=== PATIENT | male | born 1975 | race Caucasian/White ===

== ENCOUNTER 2020-09-11 10:36 | Emergency (ER) | payer MEDICAID, SELFPAY ==
--- NOTE | ~2020-09-11 | CT_ITS ---
EXAMINATION: CT ABDOMEN AND PELVIS WITHOUT CONTRAST CLINICAL INFORMATION: Left flank pain. COMPARISON: None TECHNIQUE: Multidetector volumetric imaging was performed from the superior aspect of the liver through the pubic symphysis. Sagittal and coronal reformatted images were obtained on the technologist's workstation. This CT examination was performed using dose optimization techniques as appropriate, variously including the following: *Automated exposure control *Adjustment of mA and/or kV according to patient size (this includes techniques or standardized protocols for targeted exams where dose is matched to indication/reason for exam; i.e. extremities or head) *Use of iterative reconstruction technique DLP: 649 mGy-cm FINDINGS: LUNG BASES: The lung bases are clear. The heart size is normal. LIVER, GALLBLADDER, AND BILIARY TREE: The liver is normal in size, shape, and attenuation. No focal hepatic lesion or biliary ductal dilatation is present. There are multiple dependent radiopaque gallstones. PANCREAS: Unremarkable. SPLEEN: Unremarkable. ADRENAL GLANDS: Unremarkable. KIDNEYS AND URETERS: The kidneys are normal in size, shape, and attenuation. No hydronephrosis, hydroureter, or calculi seen. No perinephric stranding. BLADDER: Unremarkable. GASTROINTESTINAL TRACT: There is scattered stool and gas seen throughout the colon without significant distention. The small bowel loops are normal caliber. The appendix is not seen well. ABDOMINAL WALL: No significant hernia is appreciated. LYMPH NODES: Normal. VASCULAR: Unremarkable. PELVIC VISCERA: There are scattered phleboliths in the left pelvis. No free fluid or free air. No abnormal pelvic lymph nodes seen. OSSEOUS STRUCTURES: There are superior endplate compression deformities T10 and T11 vertebra of indeterminate age. CT/CT abdomen pelvis wo con IMPRESSION: Moderate constipation without obstruction. No radiopaque urolith or hydroureteronephrosis. Cholelithiasis without wall thickening.
[2020-09-11 11:19] VITALS: BP 121/81; PULSE 90; RESP 18; TEMP 36.8; O2SAT 96; BMI 27.3
--- NOTE | 2020-09-11 12:11 | ED.ABDPAIN ---
HPI - Abdominal Pain General Chief Complaint: Abdominal Pain Stated Complaint: flank pain Time Seen by Provider: 09/11/20 12:09 Source: patient Mode of arrival: ambulatory Limitations: no limitations History of Present Illness HPI narrative: 45 yo male undergoing ETOH recovery sober 30 days last night developed L flank pain and dysuria no prior episodes of stones in the past MD elicited complaint: flank pain Pertinent past history: none Onset (ago): day(s) (1) Pain Consistency: constant Location: LLQ and L flank Severity: moderate Quality: stabbing Radiation: none Migration to: LLQ Exacerbating factors: nothing Relieving factors: nothing Associated symptoms: nausea and dysuria Related Data Previous Rx's Medication Instructions Recorded gabapentin 600 mg PO TID 30 Days #90 tab 09/11/20 hydroxyzine HCl 50 mg PO TID PRN 30 Days #90 tab 09/11/20 lactulose 20 g PO DAILY PRN #1200 ml 09/11/20 quetiapine [Seroquel] 50 mg PO DAILY PRN #30 tab 09/11/20 quetiapine [Seroquel] 100 mg PO BEDTIME #30 tab 09/11/20 Allergies Allergy/AdvReac Type Severity Reaction Status Date / Time No Known Allergies Allergy Verified 09/11/20 11:19 Review of Systems Review of Systems Constitutional : No Weight loss, No Fever, No Chills ENT/Mouth : No sore throat, No Rhinorrhea Eyes: No Swelling, No Redness Cardiovascular : No Chest Pain, No SOB, NoEdema Respiratory : No Cough, No Sputum, No Wheezing Gastrointestinal : Positive Nausea, no Vomiting, no Diarrhea, positive abdominal Pain, No Hematochezia, No Melena Genitourinary : pos Dysuria, No Urinary Frequency, No Hematuria, No Urgency Musculoskeletal : No joint pain, No Myalgias, No Joint Swelling Skin : No Skin Lesions, No rash Neuro : No Weakness, No Numbness, No Dizziness, No Headache Psych : No Anxiety/Panic, No Depression Heme/Lymph: No Bruising, No Lymphadenopathy Endocrine : No Polyuria, No Polydipsia All other systems reviewed and are negative. Physical Exam Vital Signs: Vital Signs: Last Vital Signs Temp 98.2 F 09/11/20 11:19 Pulse 90 09/11/20 11:19 Resp 18 09/11/20 11:19 BP 121/81 09/11/20 11:19 Pulse Ox 96 09/11/20 11:19 Body Mass Index 27.3 Appearance: Alert. Oriented X3. No acute distress. Anxious Eyes: Pupils equal, round and reactive to light. ENT: Pharynx normal. Neck: Normal inspection. Neck supple. CVS: Normal heart rate and rhythm. Pulses normal. Respiratory: No respiratory distress. Breath sounds normal. Abdomen: Soft and nontender. Skin: Skin warm and dry. Normal skin color. Normal skin turgor. Extremities: No lower extremity edema. No calf ttp Neuro: Oriented X 3. No motor deficit. No sensory deficit. Course Course Course Narrative: stable for DC at this time, other than constipation no acute events MDM - Abdominal Pain MDM Narrative Medical decision making narrative: 45 yo male 30 days sober from ETOH comes in with L flank pain as well as dysuria possible renal colic, at this time will start labs, UA, CT scan for renal colic, IVF, IV Toradol for pain, also requesting refills of seroquel, gabapentin, atarax due to no PCP and is about to run out of medications. Lab Data Result diagrams: 09/11/20 13:11 09/11/20 13:11 Labs: Lab Results 09/11/20 09/11/20 09/11/20 Range/Units 11:43 13:11 13:11 WBC 8.8 (4.8-10.8) X10*3/uL RBC 5.15 (4.60-5.80) X10*6/uL Hgb 14.0 (14.0-18.0) g/dl Hct 44.6 (42-52) % MCV 86.6 (80-98) fL MCH 27.2 (27.0-33.0) pg MCHC 31.4 (31.0-36.0) g/dl RDW 13.2 (11.0-16.0) % Plt Count 195 (160-400) X10*3/uL MPV 9.6 (9.4-12.4) fL Immature Gran % (Auto) 0.8 H (0.0-0.4) % Neut % (Auto) 69.3 (45-73) % Lymph % (Auto) 22.7 (20-40) % [place] % (Auto) 6.0 (2-11) % Eos % (Auto) 0.9 (0-4) % Baso % (Auto) 0.3 (0-2) % Lymph # (Auto) 2.0 (1.2-4.9) X10*3/uL [place] # (Auto) 0.5 (0.1-1.2) X10*3/uL Eos # (Auto) 0.1 (0.0-0.4) X10*3/uL Baso # (Auto) 0.0 (0.0-0.2) X10*3/uL Abs Immat Gran (auto) 0.07 H (0.00-0.03) X10*3/uL Absolute Neuts (auto) 6.1 (2.0-8.3) X10*3/uL Absolute Nucleated RBC 0.000 (0.0-0.012) X10*3/uL Nucleated RBC % (auto) 0.0 (0.0-0.2) /100WBC Hold Blue Top SEE NOTE Sodium (135-145) mmol/L Potassium (3.3-5.1) mmol/L Chloride (96-108) mmol/L Carbon Dioxide (22-29) mmol/L Anion Gap (12-20) BUN (9-16) mg/dL Creatinine (0.5-1.4) mg/dL Estim Creat Clear Calc Estimated GFR Random Glucose (60-115) mg/dL Calcium (8.4-10.2) mg/dL Magnesium (1.6-2.6) mg/dL Total Bilirubin (0.0-1.0) mg/dL Direct Bilirubin (0.0-0.5) mg/dL AST (5-37) U/L ALT (0-40) U/L Alkaline Phosphatase (39-117) U/L Total Protein (6.5-8.0) g/dL Albumin (3.5-5.0) g/dL Lipase (8-78) U/L Urine Color YELLOW Urine Appearance CLEAR Urine pH 7.0 (5.0-8.0) Ur Specific [place] 1.015 (1.005-1.025) Urine Protein NEG (NEG-TRACE) MG/DL Urine Glucose (UA) NEG (NEG) MG/DL Urine Ketones NEG (NEG) MG/DL Urine Blood NEG (NEG) Urine Nitrite NEG (NEG) Ur Leukocyte Esterase NEG (NEG) 09/11/20 Range/Units 13:11 WBC (4.8-10.8) X10*3/uL RBC (4.60-5.80) X10*6/uL Hgb (14.0-18.0) g/dl Hct (42-52) % MCV (80-98) fL MCH (27.0-33.0) pg MCHC (31.0-36.0) g/dl RDW (11.0-16.0) % Plt Count (160-400) X10*3/uL MPV (9.4-12.4) fL Immature Gran % (Auto) (0.0-0.4) % Neut % (Auto) (45-73) % Lymph % (Auto) (20-40) % [place] % (Auto) (2-11) % Eos % (Auto) (0-4) % Baso % (Auto) (0-2) % Lymph # (Auto) (1.2-4.9) X10*3/uL [place] # (Auto) (0.1-1.2) X10*3/uL Eos # (Auto) (0.0-0.4) X10*3/uL Baso # (Auto) (0.0-0.2) X10*3/uL Abs Immat Gran (auto) (0.00-0.03) X10*3/uL Absolute Neuts (auto) (2.0-8.3) X10*3/uL Absolute Nucleated RBC (0.0-0.012) X10*3/uL Nucleated RBC % (auto) (0.0-0.2) /100WBC Hold Blue Top Sodium 138 (135-145) mmol/L Potassium 3.9 (3.3-5.1) mmol/L Chloride 99 (96-108) mmol/L Carbon Dioxide 30 H (22-29) mmol/L Anion Gap 13 (12-20) BUN 15 (9-16) mg/dL Creatinine 0.78 (0.5-1.4) mg/dL Estim Creat Clear Calc 126.0 Estimated GFR > 60 Random Glucose 87 (60-115) mg/dL Calcium 9.7 (8.4-10.2) mg/dL Magnesium 2.0 (1.6-2.6) mg/dL Total Bilirubin 0.6 (0.0-1.0) mg/dL Direct Bilirubin < 0.2 (0.0-0.5) mg/dL AST 65 H (5-37) U/L ALT 149 H (0-40) U/L Alkaline Phosphatase 139 H (39-117) U/L Total Protein 7.3 (6.5-8.0) g/dL Albumin 4.5 (3.5-5.0) g/dL Lipase 57 (8-78) U/L Urine Color Urine Appearance Urine pH (5.0-8.0) Ur Specific [place] (1.005-1.025) Urine Protein (NEG-TRACE) MG/DL Urine Glucose (UA) (NEG) MG/DL Urine Ketones (NEG) MG/DL Urine Blood (NEG) Urine Nitrite (NEG) Ur Leukocyte Esterase (NEG) Discharge Plan Discharge Clinical Impression: Elevated liver function tests Constipation Qualifiers: Constipation type: other constipation type Qualified Code(s): K59.09 - Other constipation Patient Disposition: Home, Self-Care Instructions: Constipation (ED) Additional Instructions: return to ED for any worsening symptoms or concerns you will need to find a primary care doctor and repeat liver function tests in the next 2 to 4 weeks Prescriptions: New gabapentin 600 mg tablet 600 mg PO TID 30 Days Qty: 90 RF: 1 quetiapine [Seroquel] 100 mg tablet 100 mg PO BEDTIME Qty: 30 RF: 1 quetiapine [Seroquel] 50 mg tablet 50 mg PO DAILY PRN (Reason: anxiety) Qty: 30 RF: 1 hydroxyzine HCl 50 mg tablet 50 mg PO TID PRN (Reason: anxiety) 30 Days Qty: 90 RF: 1 lactulose 20 gram/30 mL solution 20 g PO DAILY PRN (Reason: constipation) Qty: 1200 RF: 0 PMFSH Past Medical History Attestation statement: The following information was validated with the patient. Medical History Anxiety Depression EtOH dependence Neuropathy Social History Social History (Updated 09/11/20 @ 12:31 by Regi Perez DO) Smoking Status: Never smoker Use of substances other than those prescribed or required for medical reasons: No Advance Directives: No Advance Directives Information Provided: No
[2020-09-11 12:39] LABS: Appearance Urine CLEAR; Color Urine YELLOW; Glucose Urine UA NEG (NEG); Leukocyte Esterase Urine NEG (NEG); Nitrite Urine NEG (NEG); Specific Gravity - Urine 1.015 (1.005-1.025); Urine Blood NEG (NEG); Urine Ketones NEG (NEG); Urine Protein NEG (NEG-TRACE)
[2020-09-11 13:15] LABS: MANUAL DIFF FLAG NO
[2020-09-11] MEDS: 0.9 % Sodium Chloride 1,000 ML 999 ML IVCONT (13:15)
[2020-09-11] MEDS: Ketorolac Tromethamine 30 MG/ML VIAL IVPUSH (13:15)
[2020-09-11 13:16] LABS: Basophils Percent Auto 0.3 % (0-2); Eosinophils Absolute Auto 0.1 X10*3/uL (0.0-0.4); Eosinophils Percent Auto 0.9 % (0-4); Hematocrit 44.6 % (42-52); Imm Gran Abs Auto 0.07 X10*3/uL (0.00-0.03); Imm Gran Pct Auto 0.8 % (0.0-0.4); Lymphocytes Percent Auto 22.7 % (20-40); Mean Corpuscular HGB Conc 31.4 g/dl (31.0-36.0); Mean Corpuscular Hemoglobin 27.2 pg (27.0-33.0); Mean Corpuscular Volume 86.6 fL (80-98); Mean Platelet Volume 9.6 fL (9.4-12.4); Monocytes Absolute Auto 0.5 X10*3/uL (0.1-1.2); Neutrophils Absolute Auto 6.1 X10*3/uL (2.0-8.3); Neutrophils Percent Auto 69.3 % (45-73); Platelet Count 195 X10*3/uL (160-400); Red Blood Count 5.15 X10*6/uL (4.60-5.80); Red Cell Distribution Width 13.2 % (11.0-16.0); White Blood Count 8.8 X10*3/uL (4.8-10.8)
[2020-09-11] MEDS: ondansetron HCL 4 MG/2 ML VIAL IVPUSH (13:28)
[2020-09-11 13:53] LABS: Alanine Aminotransferase 149 U/L (0-40); Albumin Level 4.5 g/dL (3.5-5.0); Alkaline Phosphatase 139 U/L (39-117); Anion Gap 13 (12-20); Aspartate Amino Transferase 65 U/L (5-37); Bilirubin Direct < 0.2 mg/dL (0.0-0.5); Bilirubin Total 0.6 mg/dL (0.0-1.0); Blood Urea Nitrogen 15 mg/dL (9-16); Calcium 9.7 mg/dL (8.4-10.2); Carbon Dioxide 30 mmol/L (22-29); Chloride 99 mmol/L (96-108); Estimated Glomerular Filt Rate > 60; Glucose Random 87 mg/dL (60-115); Lipase 57 U/L (8-78); Potassium 3.9 mmol/L (3.3-5.1); Sodium 138 mmol/L (135-145); Total Protein 7.3 g/dL (6.5-8.0)
[2020-09-11 14:00] VITALS: BP 124/78; PULSE 88; RESP 16; TEMP 36.8; O2SAT 99
== END 2020-09-11 14:33 | disposition home or self-care (01) ==
PROVIDERS: Emergency Provider Emergency Medicine
DX: K59.00 Constipation, unspecified (principal); R10.9 Unspecified abdominal pain; R79.89 Other specified abnormal findings of blood chemistry; F10.20 Alcohol dependence, uncomplicated
CPT/HCPCS: 36415; 74176; 80048; 80076; 81003; 83690; 83735; 85025; 96361; 96374; 96375; 99284; J1885; J2405

== ENCOUNTER 2020-10-05 08:33 | Emergency (ER) | payer MEDICAID, SELFPAY ==
[2020-10-05 08:42] VITALS: BP 132/88; RESP 18; TEMP 36.6; O2SAT 98; BMI 27.8
[2020-10-05] MEDS: oxyCODONE HCl Immed Release 5 MG TABLET PO (09:15)
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
[2020-10-05 09:44] VITALS: BP 134/86; PULSE 76; RESP 20; O2SAT 97
== END 2020-10-05 09:45 | disposition home or self-care (01) ==
PROVIDERS: Emergency Provider Emergency Medicine; PCP Internal Medicine
DX: S46.002A Unspecified injury of muscle(s) and tendon(s) of the rotator cuff of left shoulder, initial encounter (principal); Y04.2XXA Assault by strike against or bumped into by another person, initial encounter; F10.20 Alcohol dependence, uncomplicated; Y93.9 Activity, unspecified; Y92.9 Unspecified place or not applicable; Y99.9 Unspecified external cause status
CPT/HCPCS: 99283; 99284

== ENCOUNTER 2021-06-13 13:57 | Emergency (ER) | payer MEDICAID, SELFPAY ==
[2021-06-13 14:18] VITALS: BP 147/93; PULSE 110; RESP 18; TEMP 36.8; O2SAT 94; BMI 30.5
--- NOTE | 2021-06-13 14:40 | ECG_ITS ---
Test Reason : TACHYCARDIA Blood Pressure : / mmHG Vent. Rate : 131 BPM Atrial Rate : 131 BPM P-R Int : 146 ms QRS Dur : 086 ms QT Int : 296 ms P-R-T Axes : 057 038 054 degrees QTc Int : 437 ms Sinus tachycardia Otherwise normal ECG No previous ECGs available Referred By: Generic ED Physician Electronically Signed By:KEE AGGARWAL
[2021-06-13 15:05] LABS: Hematocrit 44.6 % (42.0-52.0); Hemoglobin 14.7 g/dl (14.0-18.0); Mean Corpuscular Hemoglobin 28.8 pg (27.0-33.0); Mean Corpuscular Volume 87.3 fL (80.0-98.0); Mean Platelet Volume 9.6 fL (9.4-12.4); Platelet Count 232 X10*3/uL (160-400); Red Blood Count 5.11 X10*6/uL (4.60-5.80); Red Cell Distribution Width 13.9 % (11.0-16.0); White Blood Count 7.8 X10*3/uL (4.8-10.8)
[2021-06-13 15:19] LABS: Anion Gap 15 (12-20); Blood Urea Nitrogen 10 mg/dL (9-16); Calcium 9.3 mg/dL (8.4-10.2); Carbon Dioxide 25 mmol/L (22-29); Chloride 109 mmol/L (96-108); Creatinine Clr Calc Pharmacy 134.2; Estimated Glomerular Filt Rate > 60; Glucose Random 106 mg/dL (60-115); Potassium 3.5 mmol/L (3.3-5.1); Sodium 145 mmol/L (135-145)
[2021-06-13 15:35] LABS: Ethanol 176 mg/dL
[2021-06-13 15:53] LABS: Amphetamine Screen Urine Not Detected (Not Detect); Barbiturates, Urine POSITIVE (Not Detect); Benzodiazepines Screen Urine POSITIVE (Not Detect); Cannabinoid Screen Urine POSITIVE (Not Detect); Cocaine Screen Urine Not Detected (Not Detect); Fentanyl, urine Not Detected (Not Detect); Opiate Screen Urine Not Detected (Not Detect); Phencyclidine Screen Urine Not Detected (Not Detect)
[2021-06-13] MEDS: LORazepam 1 MG TABLET 2 MG PO (16:15)
[2021-06-13 16:23] VITALS: BP 145/80; PULSE 100; RESP 16; TEMP 36.8; O2SAT 99
--- NOTE | 2021-06-13 17:01 | ED_ITS ---
HPI - General Adult General Chief complaint: General Medical Stated complaint: DETOX Time Seen by Provider: 06/13/21 15:33 Source: patient Mode of arrival: ambulatory History of Present Illness HPI narrative: 45-year-old male with past medical history of anxiety, depression, ETOH dependence, neuropathy presenting to the ED requesting EtOH detox. Admits to drinking 1-2 pt of hard liquor daily last drink around 10:00 a.m. this morning. Denies illicit drugs, SI, HI. Admits to nausea, vomiting and feeling tremulous. Denies fever, chills, cough, CP/SOB Onset (ago): hour(s) Radiation: non-radiation Severity: mild and moderate Relieving factors: none Exacerbating factors: none Related Data Previous Rx's Medication Instructions Recorded gabapentin 600 mg tablet 600 mg PO TID 30 Days #90 tab 09/11/20 hydroxyzine HCl 50 mg tablet 50 mg PO TID PRN 30 Days #90 tab 09/11/20 lactulose 20 gram/30 mL oral 20 g (30 mL) PO DAILY PRN #1200 ml 09/11/20 solution quetiapine 100 mg tablet (Seroquel) 100 mg PO BEDTIME #30 tab 09/11/20 quetiapine 50 mg tablet (Seroquel) 50 mg PO DAILY PRN #30 tab 09/11/20 oxycodone 5 mg tablet 5 mg PO Q8H PRN #10 tab 10/05/20 Allergies Allergy/AdvReac Type Severity Reaction Status Date / Time No Known Allergies Allergy Verified 10/05/20 08:57 Review of Systems Review of Systems: Constitutional: No Fever, No Chills, No Fatigue, No Malaise ENT/Mouth: No Ear Pain, No Nasal Congestion, No sore throat, No Rhinorrhea, No Swallowing Difficulty Eyes: No Eye Pain, No Swelling, No Redness Cardiovascular: No Chest Pain, No SOB Respiratory: No Cough, No Dyspnea Gastrointestinal: + Nausea, + Vomiting, No Diarrhea, No Constipation, No Abdominal pain Genitourinary: No Dysuria, No Urinary Frequency, No Hematuria, No Flank Pain, No Urinary Flow Changes, No Hesitancy Musculoskeletal: No joint pain, No Myalgias, No Joint Swelling Skin: No Skin Lesions, No rash Neuro: No Weakness, No Numbness, No Dizziness, No Headache Yes all other systems are reviewed and are negative PMFSH Past Medical History Attestation statement: The following information was validated with the patient. Medical History Anxiety Depression EtOH dependence Neuropathy Social History Social History Alcohol intake: current Advance Directives: No Advance Directives Information Provided: No Physical Exam Vital Signs: Vital Signs: Last Vital Signs Temp 98.2 F 06/13/21 16:23 Pulse 100 06/13/21 16:23 Resp 16 06/13/21 16:23 BP 145/80 H 06/13/21 16:23 Pulse Ox 99 06/13/21 16:23 BMI result Body Mass Index 30.5 Const: Other: ETOH odor on breath General: cooperative, healthy appearing and no acute distress Orientation/consciousness: patient oriented x3 Limitations: no limitations HENMT: Head: Yes normal to inspection Ears: hearing grossly normal bilaterally and TM's normal bilaterally General nose exam: Normal external nose present Face and sinus: Yes normal facial exam Eyes: General: appearance normal, both eyes and all related structures Pupils: Equal, round and reactive pupils present EOM: EOMs intact bilaterally Neck: Neck: Yes normal visual inspection Resp: Effort & Inspection: normal respiratory effort Auscultation: clear to auscultation bilaterally, no rales, no rhonchi and no wheezes Cardio: Rate: regular rate Heart sounds: S1 normal heart sound present and S2 normal heart sound present GI: Inspection: Yes normal to inspection Palpation (GI): Soft to palpation, nontender, no guarding and not rigid Skin: Rashes: no rashes Wounds: no wounds Neuro: Other: Slightly tremulous. No tongue fasciculations General: patient oriented x3, tone normal and moves all extremities Cranial nerves: Yes Equal, round and reactive pupils present Gait exam (Neuro): Normal gait present Extrem: General: Yes normal to inspection Psych: Thought content: suicidality and no homicidality Course Course Course Narrative: -labs unremarkable. Tox screen positive for barbiturates, benzos, marijuana, and ethanol 176. instructional coach spoke to patient patient was accepted to [facility], will be transferred from our ED to [facility] Medical Decision Making MDM Narrative Medical decision making narrative: 45-year-old male with past medical history of anxiety, depression, ETOH dependence, neuropathy presenting to the ED requesting EtOH detox. On exam mildly tachycardic, NAD, mildly tremulous, lungs CTA, abdomen soft/nontender. Concern for EtOH withdrawal/dependence Will obtain labs and instructional coach consult Medical Records Medical records reviewed: Yes I reviewed the patient's medical records. Lab Data Lab results reviewed: Yes I reviewed the patient's lab results. Result diagrams: 06/13/21 14:49 06/13/21 14:49 Labs: Lab Results 06/13/21 06/13/21 06/13/21 Range/Units 14:49 14:49 15:26 WBC 7.8 (4.8-10.8) X10*3/uL RBC 5.11 (4.60-5.80) X10*6/uL Hgb 14.7 (14.0-18.0) g/dl Hct 44.6 (42.0-52.0) % MCV 87.3 (80.0-98.0) fL MCH 28.8 (27.0-33.0) pg MCHC 33.0 (31.0-36.0) g/dl RDW 13.9 (11.0-16.0) % Plt Count 232 (160-400) X10*3/uL MPV 9.6 (9.4-12.4) fL Absolute Nucleated RBC 0.000 (0.0-0.012) X10*3/uL Nucleated RBC % (auto) 0.0 (0.0-0.2) /100WBC Sodium 145 (135-145) mmol/L Potassium 3.5 (3.3-5.1) mmol/L Chloride 109 H (96-108) mmol/L Carbon Dioxide 25 (22-29) mmol/L Anion Gap 15 (12-20) BUN 10 (9-16) mg/dL Creatinine 0.85 (0.5-1.4) mg/dL Estim Creat Clear Calc 134.2 Estimated GFR > 60 Random Glucose 106 (60-115) mg/dL Calcium 9.3 (8.4-10.2) mg/dL Magnesium 2.0 (1.6-2.6) mg/dL Urine Opiates Screen Not Detected (Not Detect) Urine Fentanyl Screen Not Detected (Not Detect) Ur Barbiturates Screen POSITIVE H (Not Detect) Ur Phencyclidine Scrn Not Detected (Not Detect) Ur Amphetamines Screen Not Detected (Not Detect) U Benzodiazepines Scrn POSITIVE H (Not Detect) Urine Cocaine Screen Not Detected (Not Detect) U Marijuana (THC) Screen POSITIVE H (Not Detect) Ethyl Alcohol mg/dL 06/13/21 Range/Units Unknown WBC (4.8-10.8) X10*3/uL RBC (4.60-5.80) X10*6/uL Hgb (14.0-18.0) g/dl Hct (42.0-52.0) % MCV (80.0-98.0) fL MCH (27.0-33.0) pg MCHC (31.0-36.0) g/dl RDW (11.0-16.0) % Plt Count (160-400) X10*3/uL MPV (9.4-12.4) fL Absolute Nucleated RBC (0.0-0.012) X10*3/uL Nucleated RBC % (auto) (0.0-0.2) /100WBC Sodium (135-145) mmol/L Potassium (3.3-5.1) mmol/L Chloride (96-108) mmol/L Carbon Dioxide (22-29) mmol/L Anion Gap (12-20) BUN (9-16) mg/dL Creatinine (0.5-1.4) mg/dL Estim Creat Clear Calc Estimated GFR Random Glucose (60-115) mg/dL Calcium (8.4-10.2) mg/dL Magnesium (1.6-2.6) mg/dL Urine Opiates Screen (Not Detect) Urine Fentanyl Screen (Not Detect) Ur Barbiturates Screen (Not Detect) Ur Phencyclidine Scrn (Not Detect) Ur Amphetamines Screen (Not Detect) U Benzodiazepines Scrn (Not Detect) Urine Cocaine Screen (Not Detect) U Marijuana (THC) Screen (Not Detect) Ethyl Alcohol 176 mg/dL Discharge Plan Discharge Clinical Impression: Alcohol dependence Qualifiers: Substance use status: unspecified alcohol-induced disorder Qualified Code(s): F10.29 - Alcohol dependence with unspecified alcohol-induced disorder Patient Disposition: Xfer Other Transfer Details: Patient being transferred to [facility] for detox Instructions: Abuse of Alcohol (ED) Additional Instructions: Go to [facility] as set up for you, you have a detox bed available Prescriptions: No Action gabapentin 600 mg tablet 600 mg PO TID 30 Days Qty: 90 RF: 1 quetiapine [Seroquel] 100 mg tablet 100 mg PO BEDTIME Qty: 30 RF: 1 quetiapine [Seroquel] 50 mg tablet 50 mg PO DAILY PRN (Reason: anxiety) Qty: 30 RF: 1 hydroxyzine HCl 50 mg tablet 50 mg PO TID PRN (Reason: anxiety) 30 Days Qty: 90 RF: 1 lactulose 20 gram/30 mL solution 20 g PO DAILY PRN (Reason: constipation) Qty: 1200 RF: 0 oxycodone 5 mg tablet 5 mg PO Q8H PRN (Reason: pain) Qty: 10 RF: 0 Referrals: [facility] [Physician] - 2 days
--- NOTE | 2021-06-13 17:19 | MHC.RECOVSUP ---
Recovery Support note: Patient presents to [facility] ED seeking detox reporting a recent relapse on alcohol. This mortgage loan underwriter met with patient to discuss alcohol use and recovery treatment options. Patient reports he has some serious anniversaries coming up and that he relapsed as a result. Patient reports he has a therapist and psychiatrist and that he recently came off of his psych medications however is thinking that he should remain on them. Patient initially expressed interest in dual diagnosis treatment however this mortgage loan underwriter explained that he could go to detox to manage his withdrawal and then work with his psychiatrist on an outpatient basis to restart meds. Patient acknowledged and is agreeable to going to detox. 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 Patient completed intake with [facility]. Dorene reports a bed will be held for him and for him to present to the emergency room their for admission. Discussed case with patient and ED provider. Patient is agreeable. Patient to be transported to [facility] by Marietta Ruiz.
== END 2021-06-13 18:08 | disposition other institution (70) ==
PROVIDERS: Physician Assistant; Emergency Provider Emergency Medicine
DX: F10.29 Alcohol dependence with unspecified alcohol-induced disorder (principal); Y90.6 Blood alcohol level of 120-199 mg/100 ml; F41.1 Generalized anxiety disorder; F43.0 Acute stress reaction; Z79.899 Other long term (current) drug therapy
CPT/HCPCS: 36415; 80048; 80307; 82077; 83735; 85027; 93005; 99284

== ENCOUNTER 2021-06-28 04:36 | Emergency (ER) | payer MEDICAID, SELFPAY ==
[2021-06-28 05:08] VITALS: BP 121/94; PULSE 107; RESP 20; TEMP 36.8; O2SAT 90; BMI 30.5
--- NOTE | 2021-06-28 05:19 | ED.ALCOHOL ---
HPI - Alcohol General Chief Complaint: ETOH/Substance Use Stated Complaint: alcohol dependency/withdrawal Time Seen by Provider: 06/28/21 05:19 Source: patient Mode of arrival: ambulatory Limitations: no limitations History of Present Illness HPI narrative: patient had 8 months of being sober but now has started drinking again in the last 2 weeks complaint: alcohol intoxication Last drink: Days (ago) Chronic alcohol use: Yes Previous visits for alcohol intoxication: Yes Related Data Previous Rx's Medication Instructions Recorded gabapentin 600 mg tablet 600 mg PO TID 30 Days #90 tab 09/11/20 hydroxyzine HCl 50 mg tablet 50 mg PO TID PRN 30 Days #90 tab 09/11/20 lactulose 20 gram/30 mL oral 20 g (30 mL) PO DAILY PRN #1200 ml 09/11/20 solution quetiapine 100 mg tablet (Seroquel) 100 mg PO BEDTIME #30 tab 09/11/20 quetiapine 50 mg tablet (Seroquel) 50 mg PO DAILY PRN #30 tab 09/11/20 oxycodone 5 mg tablet 5 mg PO Q8H PRN #10 tab 10/05/20 Allergies Allergy/AdvReac Type Severity Reaction Status Date / Time No Known Allergies Allergy Verified 10/05/20 08:57 Review of Systems Constitutional: Constitutional: Reports no additional constitutional complaints Eyes: Eyes: Reports no additional eye complaints ENT: Denies dizziness Cardiovascular: Cardiovascular: Reports no additional cardiovascular complaints Respiratory: Respiratory: Reports as per HPI Gastrointestinal: Gastrointestinal: Reports no additional gastrointestinal complaints Musculoskeletal: Musculoskeletal: Reports no additional musculoskeletal complaints Integumentary/Breasts: Skin/Breast: Denies rash Neurologic: Reports system reviewed and no additional complaints, except as documented, Denies dizziness and Denies Sensory deficit (Neuro) Psychiatric: Psychiatric: Denies anxiety PMFSH Past Medical History Medical History Anxiety Depression EtOH dependence Neuropathy Social History Social History Alcohol intake: current Alcohol intake frequency: 3 or more drinks per day Alcohol type: hard liquor Patient Tobacco Use Status: Never used Tobacco Use of substances other than those prescribed or required for medical reasons: Yes Substance Use Type: Marijuana Advance Directives: No Advance Directives Information Provided: Yes Physical Exam Vital Signs: Vital Signs: Last Vital Signs Temp 98.3 F 06/28/21 05:08 Pulse 107 H 06/28/21 05:08 Resp 20 06/28/21 05:08 BP 121/94 H 06/28/21 05:08 Pulse Ox 90 L 06/28/21 05:08 BMI result Body Mass Index 30.5 Const: Other: sleepy resting comfortably Nutritional Appearance: average body habitus Orientation/consciousness: oriented to person and patient oriented x3 Limitations: no limitations HENMT: Head: Yes normal to inspection Ears: external ears normal General nose exam: Normal external nose present Mouth: Normal oral and palatal mucosa present and oropharynx normal Throat: Yes posterior oropharynx normal Eyes: General: appearance normal, both eyes and all related structures Neck: Other: supple Neck: Yes normal visual inspection Chest: Chest palpation & inspection: normal inspection of the chest Resp: Auscultation: clear to auscultation bilaterally Cardio: Jugular venous distension: no JVD Rate: regular rate Rhythm: regular rhythm Heart sounds: S1 normal heart sound present and S2 normal heart sound present GI: Inspection: Yes normal to inspection Palpation (GI): Soft to palpation, nontender and No hepatosplenomegaly present Auscultation: normal bowel sounds : General: Yes no CVA tenderness Back/Spine/Pelvis: Back: no CVA tenderness Skin: General skin exam: no rashes or lesions noted Neuro: General: oriented to person and patient oriented x3 Cranial nerves: Yes CN's II-XII intact bilaterally Motor exam (neuro): 5/5 motor strength present throughout Sensory Exam: No Sensory deficit (Neuro) Extrem: General: Yes normal to inspection Psych: Appearance: grossly normal Mental Status: mental status grossly normal Course Reevaluation(s) Reevaluation #1: Will give patient the detox list and dc home Time: 06:15 MDM - Alcohol Lab Data Result diagrams: 06/28/21 05:38 06/28/21 05:38 Labs: Lab Results 06/28/21 06/28/21 06/28/21 Range/Units 05:38 05:38 05:38 WBC 8.5 (4.8-10.8) X10*3/uL RBC 4.87 (4.60-5.80) X10*6/uL Hgb 14.0 (14.0-18.0) g/dl Hct 44.2 (42.0-52.0) % MCV 90.8 (80.0-98.0) fL MCH 28.7 (27.0-33.0) pg MCHC 31.7 (31.0-36.0) g/dl RDW 14.6 (11.0-16.0) % Plt Count 194 (160-400) X10*3/uL MPV 9.8 (9.4-12.4) fL Immature Gran % (Auto) 1.9 H (0.0-0.4) % Neut % (Auto) 60.6 (45-73) % Lymph % (Auto) 28.6 (20-40) % [place]orne % (Auto) 7.8 (2-11) % Eos % (Auto) 0.7 (0-4) % Baso % (Auto) 0.4 (0-2) % Lymph # (Auto) 2.4 (1.2-4.9) X10*3/uL [place]orne # (Auto) 0.7 (0.1-1.2) X10*3/uL Eos # (Auto) 0.1 (0.0-0.4) X10*3/uL Baso # (Auto) 0.0 (0.0-0.2) X10*3/uL Abs Immat Gran (auto) 0.16 H (0.00-0.03) X10*3/uL Absolute Neuts (auto) 5.1 (2.0-8.3) x10*3/uL Absolute Nucleated RBC 0.000 (0.0-0.012) X10*3/uL Nucleated RBC % (auto) 0.0 (0.0-0.2) /100WBC Sodium 144 (135-145) mmol/L Potassium 3.9 (3.3-5.1) mmol/L Chloride 107 (96-108) mmol/L Carbon Dioxide 27 (22-29) mmol/L Anion Gap 14 (12-20) BUN 17 H D (9-16) mg/dL Creatinine 0.81 (0.5-1.4) mg/dL Estim Creat Clear Calc 140.8 Estimated GFR > 60 Random Glucose 97 (60-115) mg/dL Calcium 9.7 (8.4-10.2) mg/dL Total Bilirubin 0.4 (0.0-1.0) mg/dL Direct Bilirubin < 0.2 (0.0-0.5) mg/dL AST 24 D (5-37) U/L ALT 44 H (0-40) U/L Alkaline Phosphatase 96 D (39-117) U/L Total Protein 7.2 (6.5-8.0) g/dL Albumin 4.3 (3.5-5.0) g/dL Ethyl Alcohol 32 mg/dL Discharge Plan Discharge Clinical Impression: Alcohol withdrawal syndrome Qualifiers: Complication of substance-induced condition: uncomplicated Qualified Code(s): F10.230 - Alcohol dependence with withdrawal, uncomplicated Alcoholic intoxication Qualifiers: Complication of substance-induced condition: uncomplicated Qualified Code(s): F10.920 - Alcohol use, unspecified with intoxication, uncomplicated Patient Disposition: Home, Self-Care Instructions: Alcohol Withdrawal (ED), Alcohol Intoxication (ED) Additional Instructions: call the programs on the detox list Prescriptions: No Action gabapentin 600 mg tablet 600 mg PO TID 30 Days Qty: 90 RF: 1 quetiapine [Seroquel] 100 mg tablet 100 mg PO BEDTIME Qty: 30 RF: 1 quetiapine [Seroquel] 50 mg tablet 50 mg PO DAILY PRN (Reason: anxiety) Qty: 30 RF: 1 hydroxyzine HCl 50 mg tablet 50 mg PO TID PRN (Reason: anxiety) 30 Days Qty: 90 RF: 1 lactulose 20 gram/30 mL solution 20 g PO DAILY PRN (Reason: constipation) Qty: 1200 RF: 0 oxycodone 5 mg tablet 5 mg PO Q8H PRN (Reason: pain) Qty: 10 RF: 0 Referrals: Physician,None [Primary Care Provider] - 1 week
[2021-06-28 05:43] LABS: Basophils Percent Auto 0.4 % (0-2); Eosinophils Absolute Auto 0.1 X10*3/uL (0.0-0.4); Eosinophils Percent Auto 0.7 % (0-4); Hematocrit 44.2 % (42.0-52.0); Imm Gran Abs Auto 0.16 X10*3/uL (0.00-0.03); Imm Gran Pct Auto 1.9 % (0.0-0.4); Lymphocytes Absolute Auto 2.4 X10*3/uL (1.2-4.9); Lymphocytes Percent Auto 28.6 % (20-40); MANUAL DIFF FLAG NO; Mean Corpuscular HGB Conc 31.7 g/dl (31.0-36.0); Mean Corpuscular Hemoglobin 28.7 pg (27.0-33.0); Mean Corpuscular Volume 90.8 fL (80.0-98.0); Mean Platelet Volume 9.8 fL (9.4-12.4); Monocytes Absolute Auto 0.7 X10*3/uL (0.1-1.2); Monocytes Percent Auto 7.8 % (2-11); Neutrophils Absolute Auto 5.1 x10*3/uL (2.0-8.3); Neutrophils Percent Auto 60.6 % (45-73); Platelet Count 194 X10*3/uL (160-400); Red Blood Count 4.87 X10*6/uL (4.60-5.80); Red Cell Distribution Width 14.6 % (11.0-16.0); White Blood Count 8.5 X10*3/uL (4.8-10.8)
[2021-06-28 06:07] LABS: Ethanol 32 mg/dL
[2021-06-28 06:09] LABS: Alanine Aminotransferase 44 U/L (0-40); Albumin Level 4.3 g/dL (3.5-5.0); Alkaline Phosphatase 96 U/L (39-117); Anion Gap 14 (12-20); Aspartate Amino Transferase 24 U/L (5-37); Bilirubin Direct < 0.2 mg/dL (0.0-0.5); Bilirubin Total 0.4 mg/dL (0.0-1.0); Blood Urea Nitrogen 17 mg/dL (9-16); Calcium 9.7 mg/dL (8.4-10.2); Carbon Dioxide 27 mmol/L (22-29); Chloride 107 mmol/L (96-108); Creatinine Clr Calc Pharmacy 140.8; Estimated Glomerular Filt Rate > 60; Glucose Random 97 mg/dL (60-115); Potassium 3.9 mmol/L (3.3-5.1); Sodium 144 mmol/L (135-145); Total Protein 7.2 g/dL (6.5-8.0)
== END 2021-06-28 06:22 | disposition home or self-care (01) ==
PROVIDERS: Emergency Provider Emergency Medicine
DX: F10.220 Alcohol dependence with intoxication, uncomplicated (principal); F10.239 Alcohol dependence with withdrawal, unspecified; Y90.1 Blood alcohol level of 20-39 mg/100 ml
CPT/HCPCS: 36415; 80048; 80076; 82077; 85025; 99283; 99284

== ENCOUNTER 2021-06-30 14:09 | Emergency (ER) | payer MEDICAID, SELFPAY ==
[2021-06-30 15:05] VITALS: BP 133/82; PULSE 124; RESP 16; TEMP 36.8; O2SAT 95; BMI 28.4
--- NOTE | 2021-06-30 15:12 | ED_ITS ---
HPI - Alcohol General Chief Complaint: ETOH/Substance Use Stated Complaint: psych eval, detox Time Seen by Provider: 06/30/21 14:54 Source: patient Mode of arrival: ambulatory History of Present Illness HPI narrative: 45-year-old male with past medical history of anxiety, depression, ETOH dependence, neuropathy presenting to the ED requesting EtOH detox.? Admits to drinking 1-2 pt of hard liquor daily last drink 12 noon today. Reports marijuana use, denies othr illicit drugs, SI, HI.? Admits to nausea and feeling tremulous.? Denies fever, chills, cough, CP/SOB, vomiting Reports history of withdrawal seizures in the past MD complaint: alcohol withdrawal, alcohol dependence and desires rehab Last drink: Hours (ago) Chronic alcohol use: Yes Previous visits for alcohol intoxication: Yes Related Data Previous Rx's Medication Instructions Recorded gabapentin 600 mg tablet 600 mg PO TID 30 Days #90 tab 09/11/20 hydroxyzine HCl 50 mg tablet 50 mg PO TID PRN 30 Days #90 tab 09/11/20 lactulose 20 gram/30 mL oral 20 g (30 mL) PO DAILY PRN #1200 ml 09/11/20 solution quetiapine 100 mg tablet (Seroquel) 100 mg PO BEDTIME #30 tab 09/11/20 quetiapine 50 mg tablet (Seroquel) 50 mg PO DAILY PRN #30 tab 09/11/20 oxycodone 5 mg tablet 5 mg PO Q8H PRN #10 tab 10/05/20 Allergies Allergy/AdvReac Type Severity Reaction Status Date / Time No Known Allergies Allergy Verified 10/05/20 08:57 Review of Systems Review of Systems: Constitutional: No Fever, No Chills, No Fatigue, No Malaise ENT/Mouth: No Ear Pain, No Nasal Congestion, No Hoarseness, No sore throat Eyes: No Eye Pain, No Swelling, No Redness Cardiovascular: No Chest Pain, No SOB, No Palpitations Respiratory: No Cough, No Dyspnea Gastrointestinal: No Nausea, No Vomiting, No Diarrhea, No Constipation, No Abdominal pain Genitourinary: No Dysuria, No Urgency, No Flank Pain Musculoskeletal: No joint pain, No Myalgias, No Joint Swelling Skin: No Skin Lesions, No rash Neuro: No Weakness, No Loss of Consciousness, No Headache, +tremulous Psych: + Anxiety/Panic, No Depression, No SI/HI Yes all other systems are reviewed and are negative Neurologic: Denies Abnormal speech present [facility] Past Medical History Attestation statement: The following information was validated with the patient. Medical History Anxiety Depression EtOH dependence Neuropathy Social History Social History Alcohol intake: current Alcohol intake frequency: 3 or more drinks per day Alcohol type: hard liquor Patient Tobacco Use Status: Never used Tobacco Substance Use Type: Marijuana Advance Directives: No Advance Directives Information Provided: Yes Physical Exam Vital Signs: Vital Signs: Last Vital Signs Temp 98.4 F 06/30/21 17:13 Pulse 104 H 06/30/21 17:13 Resp 16 06/30/21 17:13 BP 106/63 06/30/21 17:13 Pulse Ox 94 06/30/21 17:13 BMI result Body Mass Index 28.4 Const: Other: Appears under the influence, mildly tremulous General: cooperative, alert and awake Orientation/consciousness: patient oriented x3 Limitations: no limitations HENMT: Head: Yes normal to inspection and Yes atraumatic Ears: hearing grossly normal bilaterally General nose exam: Normal external nose present Face and sinus: Yes normal facial exam Mouth: Normal oral and palatal mucosa present Eyes: General: appearance normal, both eyes and all related structures Pupils: Equal, round and reactive pupils present EOM: EOMs intact bilaterally Neck: Neck: Yes normal visual inspection and Yes no meningeal signs Resp: Effort & Inspection: normal respiratory effort and no respiratory distress Auscultation: clear to auscultation bilaterally, no rales, no rhonchi and no wheezes Cardio: Rate: regular rate Heart sounds: S1 normal heart sound present and S2 normal heart sound present GI: Inspection: Yes normal to inspection Palpation (GI): Soft to palpation, nontender and no guarding Skin: Rashes: no rashes Wounds: no wounds Neuro: General: patient oriented x3, gait normal, tone normal, moves all extremities, no meningeal signs, no focal motor deficits and CN's II-XI intact bilaterally Cranial nerves: Yes Equal, round and reactive pupils present Cognition (Neuro): normal cognition Speech: No Abnormal speech present Gait exam (Neuro): Normal gait present Extrem: General: Yes normal to inspection Psych: Attitude: cooperative Course Course Course Narrative: -1819--ethanol 12 > patient given p.o. Librium to prevent withdrawal -COVID-19 negative -patient was accepted to [facility] detox for 8pm MDM - Alcohol MDM Narrative Medical decision making narrative: 45-year-old male with past medical history of anxiety, depression, ETOH dependence, neuropathy presenting to the ED requesting EtOH detox.? On exam tachycardic, appears under the influence, mildly tremulous,, no focal neuro deficits. 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 Lab Data Attestation: I reviewed the patient's lab results. Labs: Lab Results 06/30/21 06/30/21 Range/Units 15:34 17:05 Ethyl Alcohol 12 mg/dL COVID-19 (FÁTIMA) Negative (Negative) COVID-19 Clin Com See Note Discharge Plan Discharge Clinical Impression: Alcohol dependence Qualifiers: Substance use status: uncomplicated Qualified Code(s): F10.20 - Alcohol dependence, uncomplicated Patient Disposition: Xfer Other Transfer Details: [facility] detox Instructions: Alcohol Dependence (ED) Additional Instructions: Your excepted to [facility] for detox Do not drink alcohol or take drugs it can kill you if you have thoughts of hurting yourself or hurting others please return to the ED Prescriptions: No Action gabapentin 600 mg tablet 600 mg PO TID 30 Days Qty: 90 RF: 1 quetiapine [Seroquel] 100 mg tablet 100 mg PO BEDTIME Qty: 30 RF: 1 quetiapine [Seroquel] 50 mg tablet 50 mg PO DAILY PRN (Reason: anxiety) Qty: 30 RF: 1 hydroxyzine HCl 50 mg tablet 50 mg PO TID PRN (Reason: anxiety) 30 Days Qty: 90 RF: 1 lactulose 20 gram/30 mL solution 20 g PO DAILY PRN (Reason: constipation) Qty: 1200 RF: 0 oxycodone 5 mg tablet 5 mg PO Q8H PRN (Reason: pain) Qty: 10 RF: 0 Referrals: [facility] [Physician] - 2 days
[2021-06-30 16:06] LABS: COVID-19 Test Negative (Negative); IDNOW Serial# 9DD0AD1C
[2021-06-30 17:13] VITALS: BP 106/63; PULSE 104; RESP 16; TEMP 36.9; O2SAT 94
[2021-06-30 17:24] LABS: Ethanol 12 mg/dL
[2021-06-30] MEDS: chlordiazePOXIDE HCl 25 MG CAPSULE PO (17:44)
--- NOTE | 2021-06-30 18:40 | MHC.CARE ---
Addendum entered by Kim Brock [facility] 06/30/21 19:45: 19:45 Pt was picked up by Courtney to [facility] detox. Original Note: Pt indicated that he is interested in detox so CARE Team helped pt to secure a detox bed at [facility] for tonight. Pt completed intake and was asked to be at [facility] by 20:15 at the latest. CARE Team spoke with ED provider, GEETA Mix who is in agreement with plan for pt to go to detox tonight. CARE Team will provide assistance securing a ride for pt.
== END 2021-06-30 19:58 | disposition home or self-care (01) ==
PROVIDERS: Physician Assistant; Emergency Provider Emergency Medicine
DX: F10.20 Alcohol dependence, uncomplicated (principal); Y90.0 Blood alcohol level of less than 20 mg/100 ml; Z20.822 Contact with and (suspected) exposure to COVID-19
CPT/HCPCS: 36415; 82077; 87635; 99284

== ENCOUNTER 2021-07-15 11:34 | Emergency (ER) | payer MEDICAID, SELFPAY ==
[2021-07-15 12:36] VITALS: BP 144/79; PULSE 126; RESP 18; TEMP 37.2; O2SAT 96; BMI 30.5
[2021-07-15 13:11] LABS: Amphetamine Screen Urine Not Detected (Not Detect); Barbiturates, Urine Not Detected (Not Detect); Benzodiazepines Screen Urine POSITIVE (Not Detect); Cannabinoid Screen Urine POSITIVE (Not Detect); Cocaine Screen Urine Not Detected (Not Detect); Fentanyl, urine Not Detected (Not Detect); Opiate Screen Urine Not Detected (Not Detect); Phencyclidine Screen Urine Not Detected (Not Detect)
[2021-07-15 14:58] VITALS: BP 148/84; PULSE 125; RESP 18; O2SAT 95
[2021-07-15 15:08] LABS: MANUAL DIFF FLAG NO
[2021-07-15 15:13] LABS: Basophils Absolute Auto 0.1 X10*3/uL (0.0-0.2); Basophils Percent Auto 0.3 % (0-2); Eosinophils Percent Auto 0.2 % (0-4); Hematocrit 41.9 % (42.0-52.0); Hemoglobin 13.7 g/dl (14.0-18.0); Imm Gran Abs Auto 0.12 X10*3/uL (0.00-0.03); Imm Gran Pct Auto 0.6 % (0.0-0.4); Lymphocytes Absolute Auto 2.5 X10*3/uL (1.2-4.9); Lymphocytes Percent Auto 13.6 % (20-40); Mean Corpuscular HGB Conc 32.7 g/dl (31.0-36.0); Mean Corpuscular Volume 88.6 fL (80.0-98.0); Mean Platelet Volume 9.8 fL (9.4-12.4); Monocytes Absolute Auto 0.9 X10*3/uL (0.1-1.2); Monocytes Percent Auto 4.8 % (2-11); Neutrophils Percent Auto 80.5 % (45-73); Platelet Count 171 X10*3/uL (160-400); Red Blood Count 4.73 X10*6/uL (4.60-5.80); Red Cell Distribution Width 13.6 % (11.0-16.0); White Blood Count 18.6 X10*3/uL (4.8-10.8)
[2021-07-15 15:25] LABS: Ethanol < 10 mg/dL
[2021-07-15 23:40] VITALS: BP 153/102; PULSE 118; RESP 20; O2SAT 95
--- NOTE | 2021-07-16 00:34 | ED_ITS ---
HPI - Alcohol General Chief Complaint: ETOH/Substance Use <Grazyna Mosqueda MD - Last Filed: 07/16/21 01:19> Stated Complaint: alcohol abuse and depression <Grazyna Mosqueda MD - Last Filed: 07/16/21 01:19> Time Seen by Provider: 07/16/21 00:20 <Grazyna Mosqueda MD - Last Filed: 07/16/21 01:19> Source: patient <Grazyna Mosqueda MD - Last Filed: 07/16/21 01:19> Mode of arrival: ambulatory <Grazyna Mosqueda MD - Last Filed: 07/16/21 01:19> Limitations: no limitations <Grazyna Mosqueda MD - Last Filed: 07/16/21 01:19> History of Present Illness HPI narrative: Patient comes to the emergency room requesting detox. Patient states that he completed his program from her [place] at the end of June. Patient states that this times are very rough for him. Couple of years ago his nephew overdosed on [place], and 2 days from now, it is the anniversary of his nallely jaffe's secondary to cirrhosis. Approximately 24 hours ago patient had his last drink. <Grazyna Mosqueda MD - Last Filed: 07/16/21 01:19> Related Data Home Medications: Previous Rx's Medication Instructions Recorded gabapentin 600 mg tablet 600 mg PO TID 30 Days #90 tab 09/11/20 hydroxyzine HCl 50 mg tablet 50 mg PO TID PRN 30 Days #90 tab 09/11/20 lactulose 20 gram/30 mL oral 20 g (30 mL) PO DAILY PRN #1200 ml 09/11/20 solution quetiapine 100 mg tablet (Seroquel) 100 mg PO BEDTIME #30 tab 09/11/20 quetiapine 50 mg tablet (Seroquel) 50 mg PO DAILY PRN #30 tab 09/11/20 oxycodone 5 mg tablet 5 mg PO Q8H PRN #10 tab 10/05/20 <Grazyna Mosqueda MD - Last Filed: 07/16/21 01:19> Allergies/Adverse Reactions: Allergies Allergy/AdvReac Type Severity Reaction Status Date / Time No Known Allergies Allergy Verified 07/15/21 12:35 <Grazyna Mosqueda MD - Last Filed: 07/16/21 01:19> Review of Systems Review of Systems: Constitutional : No Weight loss, No Fever, No Chills, No Night Sweats, No Fatigue, No Malaise ENT/Mouth : No Hearing loss, No Ear Pain, No Nasal Congestion, No Sinus Pain, No Hoarseness, No sore throat, No Rhinorrhea, No Swallowing Difficulty Eyes: No Eye Pain, No Swelling, No Redness, No Foreign Body, No Discharge, No Vision Changes Cardiovascular : No Chest Pain, No SOB, No Dyspnea on Exertion, No Orthopnea, No Edema, No Palpitations Respiratory : No Cough, No Sputum, No Wheezing, No Smoke Exposure, No Dyspnea Gastrointestinal : No Nausea, No Vomiting, No Diarrhea, No Constipation, No abdominal Pain, No Hematochezia, No Melena Genitourinary : no irregular bleeding, No Dysuria, No Urinary Frequency, No Elliot turia, No Urinary Incontinence, No Urgency, No Flank Pain, No Urinary Flow Changes, No Hesitancy Musculoskeletal : No joint pain, No Myalgias, No Joint Swelling Skin : No Skin Lesions, No rash Neuro : No Weakness, No Numbness, No Paresthesias, No Loss of Consciousness, No Dizziness, No Headache Psych : No Anxiety/Panic, No Depression, No SI/HI/AH/VH, restarted drinking again Heme/Lymph: No Bruising, No Bleeding,No Lymphadenopathy Endocrine : No Polyuria, No Polydipsia, No Temperature Intolerance <Grazyna Mosqueda MD - Last Filed: 07/16/21 01:19> [facility] Past Medical History Medical History: Medical History Anxiety Depression EtOH dependence Neuropathy <Grazyna Mosqueda MD - Last Filed: 07/16/21 01:19> Social History Social History: Social History Alcohol intake: current Alcohol intake frequency: 3 or more drinks per day Alcohol type: hard liquor Patient Tobacco Use Status: Never used Tobacco Substance Use Type: Marijuana Advance Directives: No Advance Directives Information Provided: No <Grazyna Mosqueda MD - Last Filed: 07/16/21 01:19> Physical Exam Vital Signs: Vital Signs: Last Vital Signs Temp 99.0 F 07/15/21 12:36 Pulse 92 07/16/21 07:28 Resp 18 07/16/21 07:28 BP 121/67 07/16/21 07:28 Pulse Ox 92 07/16/21 04:59 BMI result Body Mass Index 30.5 <Grazyna Mosqueda MD - Last Filed: 07/16/21 01:19> Vital Signs: Last Vital Signs Temp 99.0 F 07/15/21 12:36 Pulse 92 07/16/21 07:28 Resp 18 07/16/21 07:28 BP 121/67 07/16/21 07:28 Pulse Ox 92 07/16/21 04:59 BMI result Body Mass Index 30.5 <Chester Jacobsen MD - Last Filed: 07/16/21 09:11> Const: Other: Appearance: Alert. Oriented X3. No acute distress. Anxious Eyes: Pupils equal, round and reactive to light. ENT: Pharynx normal. Neck: Normal inspection. Neck supple. No lymph nodes noted. No crepitus CVS: Normal heart rate and rhythm. Pulses normal. Normal S1 and S2 Respiratory: No respiratory distress. Breath sounds normal. No Wheezing. No rales Abdomen: Soft and nontender. No rigidity. No distention. Skin: Skin warm and dry. Normal skin color. Normal skin turgor. Extremities: No lower extremity edema. No Lacerations. No Rash Neuro: Oriented X 3. No motor deficit. No sensory deficit. Moving all extermities. No slurred speech. Cranial nerves 2-12 grossly intact Psych: Calm, cooperative <Grayzna Mosqueda MD - Last Filed: 07/16/21 01:19> Course Course Course Narrative: The care team in speaking with the patient, coming up with a plan. Better from the care team evaluated the patient, patient will be going this morning to [facility] Physician observation started at 01:19. Patient's blood pressure 138/87, pulse 104, patient has no symptoms of withdrawal. Patient was given prophylactically 1 dose of Librium. <Grazyna Mosqueda MD - Last Filed: 07/16/21 01:19> Reevaluation(s) Reevaluation #1: awake and alert we are waiting care team mike,pt was signed off to me in am at 8 am,he has been cleared medically by Dr mosqueda and placed in OBS Status <Chester Jacobsen MD - Last Filed: 07/16/21 09:11> Reevaluation #2: Bed found in the Detox in [place],Care team will provide trasportation,he i s non toxic,he is asyntomatic,WBC noted ordered by Dr mosqueda but has no fever,and no symptoms I feel good ,may be related to the withdrawal symptoms I told the pt about the elevated WBC and when he is out of detox will follow up with PCP. Again at this time he is completely asymptomatic.This is ended Obs status <Chester Jacobsen MD - Last Filed: 07/16/21 09:11> MDM - Alcohol Lab Data Result diagrams: : 07/15/21 15:04 <Grazyna Mosqueda MD - Last Filed: 07/16/21 01:19> Labs: Lab Results 07/15/21 07/15/21 07/15/21 Range/Units 12:42 15:04 15:04 WBC 18.6 H (4.8-10.8) X10*3/uL RBC 4.73 (4.60-5.80) X10*6/uL Hgb 13.7 L (14.0-18.0) g/dl Hct 41.9 L (42.0-52.0) % MCV 88.6 (80.0-98.0) fL MCH 29.0 (27.0-33.0) pg MCHC 32.7 (31.0-36.0) g/dl RDW 13.6 (11.0-16.0) % Plt Count 171 (160-400) X10*3/uL MPV 9.8 (9.4-12.4) fL Immature Gran % (Auto) 0.6 H (0.0-0.4) % Neut % (Auto) 80.5 H (45-73) % Lymph % (Auto) 13.6 L (20-40) % [place] % (Auto) 4.8 (2-11) % Eos % (Auto) 0.2 (0-4) % Baso % (Auto) 0.3 (0-2) % Lymph # (Auto) 2.5 (1.2-4.9) X10*3/uL [place] # (Auto) 0.9 (0.1-1.2) X10*3/uL Eos # (Auto) 0.0 (0.0-0.4) X10*3/uL Baso # (Auto) 0.1 (0.0-0.2) X10*3/uL Abs Immat Gran (auto) 0.12 H (0.00-0.03) X10*3/uL Absolute Neuts (auto) 15.0 H (2.0-8.3) x10*3/uL Absolute Nucleated RBC 0.000 (0.0-0.012) X10*3/uL Nucleated RBC % (auto) 0.0 (0.0-0.2) /100WBC Urine Opiates Screen Not Detected (Not Detect) Urine Fentanyl Screen Not Detected (Not Detect) Ur Barbiturates Screen Not Detected (Not Detect) Ur Phencyclidine Scrn Not Detected (Not Detect) Ur Amphetamines Screen Not Detected (Not Detect) U Benzodiazepines Scrn POSITIVE H (Not Detect) Urine Cocaine Screen Not Detected (Not Detect) U Marijuana (THC) Screen POSITIVE H (Not Detect) Ethyl Alcohol < 10 mg/dL <Grazyna Mosquead MD - Last Filed: 07/16/21 01:19> Lab Results 07/15/21 07/15/21 07/15/21 Range/Units 12:42 15:04 15:04 WBC 18.6 H (4.8-10.8) X10*3/uL RBC 4.73 (4.60-5.80) X10*6/uL Hgb 13.7 L (14.0-18.0) g/dl Hct 41.9 L (42.0-52.0) % MCV 88.6 (80.0-98.0) fL MCH 29.0 (27.0-33.0) pg MCHC 32.7 (31.0-36.0) g/dl RDW 13.6 (11.0-16.0) % Plt Count 171 (160-400) X10*3/uL MPV 9.8 (9.4-12.4) fL Immature Gran % (Auto) 0.6 H (0.0-0.4) % Neut % (Auto) 80.5 H (45-73) % Lymph % (Auto) 13.6 L (20-40) % [place] % (Auto) 4.8 (2-11) % Eos % (Auto) 0.2 (0-4) % Baso % (Auto) 0.3 (0-2) % Lymph # (Auto) 2.5 (1.2-4.9) X10*3/uL [place] # (Auto) 0.9 (0.1-1.2) X10*3/uL Eos # (Auto) 0.0 (0.0-0.4) X10*3/uL Baso # (Auto) 0.1 (0.0-0.2) X10*3/uL Abs Immat Gran (auto) 0.12 H (0.00-0.03) X10*3/uL Absolute Neuts (auto) 15.0 H (2.0-8.3) x10*3/uL Absolute Nucleated RBC 0.000 (0.0-0.012) X10*3/uL Nucleated RBC % (auto) 0.0 (0.0-0.2) /100WBC Urine Opiates Screen Not Detected (Not Detect) Urine Fentanyl Screen Not Detected (Not Detect) Ur Barbiturates Screen Not Detected (Not Detect) Ur Phencyclidine Scrn Not Detected (Not Detect) Ur Amphetamines Screen Not Detected (Not Detect) U Benzodiazepines Scrn POSITIVE H (Not Detect) Urine Cocaine Screen Not Detected (Not Detect) U Marijuana (THC) Screen POSITIVE H (Not Detect) Ethyl Alcohol < 10 mg/dL <Chester Jacobsen MD - Last Filed: 07/16/21 09:11> Discharge Plan Discharge Clinical Impression: Alcohol dependence <Grazyna Mosqueda MD - Last Filed: 07/16/21 01:19> Patient Disposition: Home, Self-Care <Grazyna Mosqueda MD - Last Filed: 07/16/21 01:19> Instructions: Abuse of Alcohol (ED) <Grazyna Mosqueda MD - Last Filed: 07/16/21 01:19> Prescriptions: No Action gabapentin 600 mg tablet 600 mg PO TID 30 Days Qty: 90 RF: 1 quetiapine [Seroquel] 100 mg tablet 100 mg PO BEDTIME Qty: 30 RF: 1 quetiapine [Seroquel] 50 mg tablet 50 mg PO DAILY PRN (Reason: anxiety) Qty: 30 RF: 1 hydroxyzine HCl 50 mg tablet 50 mg PO TID PRN (Reason: anxiety) 30 Days Qty: 90 RF: 1 lactulose 20 gram/30 mL solution 20 g PO DAILY PRN (Reason: constipation) Qty: 1200 RF: 0 oxycodone 5 mg tablet 5 mg PO Q8H PRN (Reason: pain) Qty: 10 RF: 0 <Grazyna Mosqueda MD - Last Filed: 07/16/21 01:19>
[2021-07-16] MEDS: chlordiazePOXIDE HCl 5 MG CAPSULE 10 MG PO (00:43)
[2021-07-16 00:51] VITALS: BP 138/87; PULSE 104; RESP 18; O2SAT 96
--- NOTE | 2021-07-16 01:27 | MHC.CARE ---
CARE team support requested by ED physician for pt who self presented to ED seeking detox for alcohol use disorder and support for symptoms of depression Pt was in waiting room for ~13 hours before being brought into the emergency department. He was alert and oriented, appearance within normal limits, slightly malodorous, irritable but overall pleasant. He reported that he was recently in detox at [facility] for a couple weeks and discharged on 07/08/21, and that he had a negative experience with staff and felt that they were manipulative and he expressed that he doesn't want to go back there again. He shared that the 1 year anniversary of discovering his nephew post opiate overdose on [place] 2020 had just passed, and is anticipating that he will struggle significantly with the impending anniversary of his fiancee's , having from cirrhosis on 07/18/2020. He reported that after he left [facility] that he immediately went on a castellon and had been drinking heavily between the 07/08/21 and 07/14/21, with his last drink being late in the evening of the . He shared that he's from [place] and that he moved up to [place] last year and primarily stays in [facility] however he's in a relationship with someone that lives in [place], which he stated he is actively trying to cut ties with once he feels more stable in his recovery and he has arrangements with family friends who are able to let him stay with them once he is sober. 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 He denied any current SI/HI, denied any sleep or appetite disturbances, and reported that he has been compliant with his medications as prescribed, though feels that it could be helpful if the dosages were adjusted. He has a history of depression and anxiety and inpatient admissions for [facility] and mental health, denied history of suicidality or aggression. Medications (has them with him in his backpack): Wellbutrin ER 150mg QAM Seroquel 50mg TID Seroquel 25mg QHS Gabapentin 600mg (frequency not specified) Received 10mg librium ~1am Based on this consultation, this account underwriter recommends [facility] placement and pt will be referred to recovery support team in the morning.
[2021-07-16 03:52] VITALS: BP 130/78; PULSE 106; RESP 16; O2SAT 96
[2021-07-16 04:10] VITALS: BP 125/77
[2021-07-16 04:59] VITALS: BP 137/74; PULSE 95; RESP 8; O2SAT 92
[2021-07-16 07:28] VITALS: BP 121/67; PULSE 92; RESP 18
[2021-07-16] MEDS: LORazepam 1 MG TABLET 2 MG PO (08:28)
--- NOTE | 2021-07-16 10:17 | MHC.RECOVSUP ---
Recovery Support note: Patient was referred to Recovery Support Team by CARE Team. This assembly instructions writer met with patient on 07/16/20 to discuss alcohol use and treatment options. Patient continues to express interest in going to [facility]S/[facility]. Patient reports this is a difficult time of year due to anniversaries and he would like to be somewhere safe. Patient referred to [facility] and accepted for admission. Patient transported via [employer]. Discussed case with patient's ED provider and container finishing inspector.
== END 2021-07-16 12:11 | disposition home or self-care (01) ==
PROVIDERS: Emergency Provider Emergency Medicine
DX: F10.20 Alcohol dependence, uncomplicated (principal); Y90.0 Blood alcohol level of less than 20 mg/100 ml
CPT/HCPCS: 80307; 82077; 85025; 99284; 99285

== ENCOUNTER 2021-07-31 13:52 | Emergency (ER) | payer MEDICAID, SELFPAY ==
[2021-07-31 14:43] VITALS: BP 153/114; PULSE 113; RESP 18; TEMP 36.8; O2SAT 94; BMI 31.8
[2021-07-31 15:10] LABS: MANUAL DIFF FLAG NO
[2021-07-31 15:11] LABS: Basophils Absolute Auto 0.1 X10*3/uL (0.0-0.2); Basophils Percent Auto 0.7 % (0-2); Eosinophils Absolute Auto 0.1 X10*3/uL (0.0-0.4); Eosinophils Percent Auto 0.9 % (0-4); Hematocrit 48.1 % (42.0-52.0); Imm Gran Abs Auto 0.08 X10*3/uL (0.00-0.03); Imm Gran Pct Auto 0.9 % (0.0-0.4); Lymphocytes Absolute Auto 2.3 X10*3/uL (1.2-4.9); Lymphocytes Percent Auto 25.5 % (20-40); Mean Corpuscular HGB Conc 33.3 g/dl (31.0-36.0); Mean Corpuscular Hemoglobin 28.7 pg (27.0-33.0); Mean Corpuscular Volume 86.2 fL (80.0-98.0); Mean Platelet Volume 9.5 fL (9.4-12.4); Monocytes Absolute Auto 0.4 X10*3/uL (0.1-1.2); Monocytes Percent Auto 4.7 % (2-11); Neutrophils Percent Auto 67.3 % (45-73); Platelet Count 241 X10*3/uL (160-400); Red Blood Count 5.58 X10*6/uL (4.60-5.80); Red Cell Distribution Width 13.7 % (11.0-16.0); White Blood Count 8.9 X10*3/uL (4.8-10.8)
--- NOTE | 2021-07-31 15:16 | ED_ITS ---
HPI - Alcohol General Chief Complaint: ETOH/Substance Use Stated Complaint: alcohol withdrawl found on floor Time Seen by Provider: 07/31/21 15:11 Source: patient Mode of arrival: ambulatory Limitations: no limitations History of Present Illness MD complaint: alcohol withdrawal Last drink: Days (ago) (1) Chronic alcohol use: Yes Previous visits for alcohol intoxication: Yes Recent trauma: No Associated symptoms: nausea, vomiting, seizure (?states his tongue hurts but no incontinence) and tremors Treatments prior to arrival: none Related Data Previous Rx's Medication Instructions Recorded gabapentin 600 mg tablet 600 mg PO TID 30 Days #90 tab 09/11/20 hydroxyzine HCl 50 mg tablet 50 mg PO TID PRN 30 Days #90 tab 09/11/20 lactulose 20 gram/30 mL oral 20 g (30 mL) PO DAILY PRN #1200 ml 09/11/20 solution quetiapine 100 mg tablet (Seroquel) 100 mg PO BEDTIME #30 tab 09/11/20 quetiapine 50 mg tablet (Seroquel) 50 mg PO DAILY PRN #30 tab 09/11/20 oxycodone 5 mg tablet 5 mg PO Q8H PRN #10 tab 10/05/20 Allergies Allergy/AdvReac Type Severity Reaction Status Date / Time No Known Allergies Allergy Verified 07/15/21 12:35 Review of Systems Review of Systems: Constitutional : No Weight loss, No Fever, No Chills ENT/Mouth : No sore throat, No Rhinorrhea Eyes: No Swelling, No Redness Cardiovascular : No Chest Pain, No SOB, NoEdema Respiratory : No Cough, No Sputum, No Wheezing Gastrointestinal : Positive Nausea, Positive Vomiting, no Diarrhea, no abdominal Pain, No Hematochezia, No Melena Genitourinary : No Dysuria, No Urinary Frequency, No Hematuria, No Urgency Musculoskeletal : No joint pain, No Myalgias, No Joint Swelling Skin : No Skin Lesions, No rash Neuro : No Weakness, No Numbness, No Dizziness, No Headache Psych : pos Anxiety/Panic, No Depression Heme/Lymph: No Bruising, No Lymphadenopathy Endocrine : No Polyuria, No Polydipsia All other systems reviewed and are negative. [facility], [facility] Past Medical History Medical History Anxiety Depression EtOH dependence Neuropathy Social History Social History Alcohol intake: current Alcohol intake frequency: 3 or more drinks per day Alcohol type: hard liquor Patient Tobacco Use Status: Never used Tobacco Use of substances other than those prescribed or required for medical reasons: Yes Substance Use Type: Marijuana Last Used Substance: Hours (ago) Any prior treatment program specific to substance use: No (answer) Advance Directives: No Advance Directives Information Provided: No Physical Exam Vital Signs: Vital Signs: Last Vital Signs Temp 98.8 F 07/31/21 15:20 Pulse 87 07/31/21 18:15 Resp 18 07/31/21 18:15 BP 136/89 07/31/21 15:20 Pulse Ox 98 07/31/21 18:15 BMI result Body Mass Index 31.8 Appearance: Alert. Oriented X3. No acute distress. Eyes: Pupils equal, round and reactive to light. ENT: Pharynx normal. No abrasions noted but mild bilateral tooth indentations - no blood in mouth no breaks in the tongue itself Neck: Normal inspection. Neck supple. CVS: tachycardic heart rate and rhythm. Pulses normal. Respiratory: No respiratory distress. Breath sounds normal. Abdomen: Soft and non-tender. Skin: Skin warm and dry. Normal skin color. Normal skin turgor. Extremities: No lower extremity edema. No calf ttp Neuro: Oriented X 3. No motor deficit. No sensory deficit. Mild tremor noted Course Course Course Narrative: no acidosis no WBC count no actual bite burkett on tongue no incontinence and states woke up with sore tongue this seems inconsistent with seizure - at this time will continue to observe in ED and attempt to find placement I do not think he had seizure at home symptoms and VS drastically improved looks well - [facility] bed for 930pm patient happy, repeat IV ativan pending placement though looks really well MDM - Alcohol MDM Narrative Medical decision making narrative: 45 yo male 24 hours post ETOH use reports tremors, n/v shaking - no SI. Just completed detox a couple of weeks ago. He is worried he had a seizure because his tongue is sore but no abrasions there are some burkett but no bleeding and no incontinence - he woke up with a sore tongue. At this time will obtain labs, IVF, IV ativan, IV thiamine and will observe - may need admission vs detox Lab Data Result diagrams: 07/31/21 15:05 07/31/21 15:05 Labs: Lab Results 07/31/21 07/31/21 07/31/21 Range/Units 15:05 15:05 15:05 WBC 8.9 (4.8-10.8) X10*3/uL RBC 5.58 (4.60-5.80) X10*6/uL Hgb 16.0 (14.0-18.0) g/dl Hct 48.1 (42.0-52.0) % MCV 86.2 (80.0-98.0) fL MCH 28.7 (27.0-33.0) pg MCHC 33.3 (31.0-36.0) g/dl RDW 13.7 (11.0-16.0) % Plt Count 241 D (160-400) X10*3/uL MPV 9.5 (9.4-12.4) fL Immature Gran % (Auto) 0.9 H (0.0-0.4) % Neut % (Auto) 67.3 (45-73) % Lymph % (Auto) 25.5 (20-40) % [place] % (Auto) 4.7 (2-11) % Eos % (Auto) 0.9 (0-4) % Baso % (Auto) 0.7 (0-2) % Lymph # (Auto) 2.3 (1.2-4.9) X10*3/uL [place] # (Auto) 0.4 (0.1-1.2) X10*3/uL Eos # (Auto) 0.1 (0.0-0.4) X10*3/uL Baso # (Auto) 0.1 (0.0-0.2) X10*3/uL Abs Immat Gran (auto) 0.08 H (0.00-0.03) X10*3/uL Absolute Neuts (auto) 6.0 (2.0-8.3) x10*3/uL Absolute Nucleated RBC 0.000 (0.0-0.012) X10*3/uL Nucleated RBC % (auto) 0.0 (0.0-0.2) /100WBC Sodium 143 (135-145) mmol/L Potassium 3.9 (3.3-5.1) mmol/L Chloride 107 (96-108) mmol/L Carbon Dioxide 24 (22-29) mmol/L Anion Gap 16 (12-20) BUN 14 (9-16) mg/dL Creatinine 0.83 (0.5-1.4) mg/dL Estim Creat Clear Calc 140.3 Estimated GFR > 60 Random Glucose 120 H (60-115) mg/dL Calcium 9.3 (8.4-10.2) mg/dL Magnesium 2.1 (1.6-2.6) mg/dL Total Bilirubin 0.6 (0.0-1.0) mg/dL Direct Bilirubin 0.2 (0.0-0.5) mg/dL AST 21 (5-37) U/L ALT 19 (0-40) U/L Alkaline Phosphatase 108 (39-117) U/L Total Protein 7.9 (6.5-8.0) g/dL Albumin 4.3 (3.5-5.0) g/dL Lipase 29 (8-78) U/L Urine Color Urine Appearance Urine pH (5.0-8.0) Ur Specific [place] (1.005-1.025) Urine Protein (NEG-TRACE) MG/DL Urine Glucose (UA) (NEG) MG/DL Urine Ketones (NEG) MG/DL Urine Blood (NEG) Urine Nitrite (NEG) Ur Leukocyte Esterase (NEG) Urine Opiates Screen (Not Detect) Urine Fentanyl Screen (Not Detect) Ur Barbiturates Screen (Not Detect) Ur Phencyclidine Scrn (Not Detect) Ur Amphetamines Screen (Not Detect) U Benzodiazepines Scrn (Not Detect) Urine Cocaine Screen (Not Detect) U Marijuana (THC) Screen (Not Detect) Ethyl Alcohol 29 mg/dL COVID-19 (FÁTIMA) (Negative) COVID-19 Clin Com 07/31/21 07/31/21 07/31/21 Range/Units 15:05 15:28 15:28 WBC (4.8-10.8) X10*3/uL RBC (4.60-5.80) X10*6/uL Hgb (14.0-18.0) g/dl Hct (42.0-52.0) % MCV (80.0-98.0) fL MCH (27.0-33.0) pg MCHC (31.0-36.0) g/dl RDW (11.0-16.0) % Plt Count (160-400) X10*3/uL MPV (9.4-12.4) fL Immature Gran % (Auto) (0.0-0.4) % Neut % (Auto) (45-73) % Lymph % (Auto) (20-40) % [place] % (Auto) (2-11) % Eos % (Auto) (0-4) % Baso % (Auto) (0-2) % Lymph # (Auto) (1.2-4.9) X10*3/uL [place] # (Auto) (0.1-1.2) X10*3/uL Eos # (Auto) (0.0-0.4) X10*3/uL Baso # (Auto) (0.0-0.2) X10*3/uL Abs Immat Gran (auto) (0.00-0.03) X10*3/uL Absolute Neuts (auto) (2.0-8.3) x10*3/uL Absolute Nucleated RBC (0.0-0.012) X10*3/uL Nucleated RBC % (auto) (0.0-0.2) /100WBC Sodium (135-145) mmol/L Potassium (3.3-5.1) mmol/L Chloride (96-108) mmol/L Carbon Dioxide (22-29) mmol/L Anion Gap (12-20) BUN (9-16) mg/dL Creatinine (0.5-1.4) mg/dL Estim Creat Clear Calc Estimated GFR Random Glucose (60-115) mg/dL Calcium (8.4-10.2) mg/dL Magnesium (1.6-2.6) mg/dL Total Bilirubin (0.0-1.0) mg/dL Direct Bilirubin (0.0-0.5) mg/dL AST (5-37) U/L ALT (0-40) U/L Alkaline Phosphatase (39-117) U/L Total Protein (6.5-8.0) g/dL Albumin (3.5-5.0) g/dL Lipase (8-78) U/L Urine Color YELLOW Urine Appearance CLEAR Urine pH 6.5 (5.0-8.0) Ur Specific [place] 1.025 (1.005-1.025) Urine Protein TRACE (NEG-TRACE) MG/DL Urine Glucose (UA) NEG (NEG) MG/DL Urine Ketones NEG (NEG) MG/DL Urine Blood NEG (NEG) Urine Nitrite NEG (NEG) Ur Leukocyte Esterase NEG (NEG) Urine Opiates Screen Not Detected (Not Detect) Urine Fentanyl Screen Not Detected (Not Detect) Ur Barbiturates Screen Not Detected (Not Detect) Ur Phencyclidine Scrn Not Detected (Not Detect) Ur Amphetamines Screen Not Detected (Not Detect) U Benzodiazepines Scrn POSITIVE H (Not Detect) Urine Cocaine Screen Not Detected (Not Detect) U Marijuana (THC) Screen POSITIVE H (Not Detect) Ethyl Alcohol mg/dL COVID-19 (FÁTIMA) Negative (Negative) COVID-19 Clin Com See Note ECG Data ECG #1: Attestation: I personally reviewed and interpreted this ECG as follows: ECG interpretation date: 07/31/21 ECG interpretation time: 16:02 Interpretation: Rate: 103 Rhythm: sinus tachycardia [place]: normal Normal P waves. Normal KYLE. Normal QRS complex. ST T wave : normal no JORDAN qTC: normal prior studies: no acute ischemia The study has been interpreted contemporaneously by me. . Procedures EJ/Peripheral Line Arm L: Time Out Performed: Yes Skin Cleansed in Sterile Fashion: Yes Size (gauge): 20 IV Secured and Dressing Applied: No Patient Tolerated Procedure: well Critical Care Time Critical Care Time Critical Care Time: Yes Total Critical Care Time: 45 Attestation: IVF x 2L, IV ativan I attest to this time spent taking care of the patient Discharge Plan Discharge Clinical Impression: Alcohol withdrawal syndrome Patient Disposition: Xfer Other Transfer Details: [facility] Instructions: Alcohol Withdrawal (ED) Additional Instructions: return to ED for any worsening symptoms or concerns COVID negative Prescriptions: No Action gabapentin 600 mg tablet 600 mg PO TID 30 Days Qty: 90 RF: 1 quetiapine [Seroquel] 100 mg tablet 100 mg PO BEDTIME Qty: 30 RF: 1 quetiapine [Seroquel] 50 mg tablet 50 mg PO DAILY PRN (Reason: anxiety) Qty: 30 RF: 1 hydroxyzine HCl 50 mg tablet 50 mg PO TID PRN (Reason: anxiety) 30 Days Qty: 90 RF: 1 lactulose 20 gram/30 mL solution 20 g PO DAILY PRN (Reason: constipation) Qty: 1200 RF: 0 oxycodone 5 mg tablet 5 mg PO Q8H PRN (Reason: pain) Qty: 10 RF: 0
[2021-07-31 15:20] VITALS: BP 136/89; PULSE 107; RESP 16; TEMP 37.1; O2SAT 94
--- NOTE | 2021-07-31 15:21 | ECG_ITS ---
Test Reason : Alcohol withdrawal Blood Pressure : / mmHG Vent. Rate : 103 BPM Atrial Rate : 103 BPM P-R Int : 156 ms QRS Dur : 088 ms QT Int : 364 ms P-R-T Axes : 059 046 048 degrees QTc Int : 476 ms Sinus tachycardia Otherwise normal ECG When compared with ECG of 13-JUN-2021 14:45, No significant change was found Referred By: Regi Perez Electronically Signed By:Chester Marmolejo
[2021-07-31 15:25] LABS: COVID-19 Test Negative (Negative)
[2021-07-31 15:27] LABS: Ethanol 29 mg/dL
[2021-07-31 15:32] LABS: Alanine Aminotransferase 19 U/L (0-40); Albumin Level 4.3 g/dL (3.5-5.0); Alkaline Phosphatase 108 U/L (39-117); Anion Gap 16 (12-20); Aspartate Amino Transferase 21 U/L (5-37); Bilirubin Direct 0.2 mg/dL (0.0-0.5); Bilirubin Total 0.6 mg/dL (0.0-1.0); Blood Urea Nitrogen 14 mg/dL (9-16); Calcium 9.3 mg/dL (8.4-10.2); Carbon Dioxide 24 mmol/L (22-29); Chloride 107 mmol/L (96-108); Creatinine Clr Calc Pharmacy 140.3; Estimated Glomerular Filt Rate > 60; Glucose Random 120 mg/dL (60-115); Lipase 29 U/L (8-78); Magnesium 2.1 mg/dL (1.6-2.6); Potassium 3.9 mmol/L (3.3-5.1); Sodium 143 mmol/L (135-145); Total Protein 7.9 g/dL (6.5-8.0)
[2021-07-31 15:36] LABS: Appearance Urine CLEAR; Color Urine YELLOW; Glucose Urine UA NEG (NEG); Leukocyte Esterase Urine NEG (NEG); Nitrite Urine NEG (NEG); PH 6.5 (5.0-8.0); Specific Gravity - Urine 1.025 (1.005-1.025); Urine Blood NEG (NEG); Urine Ketones NEG (NEG); Urine Protein TRACE MG/DL (NEG-TRACE)
[2021-07-31] MEDS: LORazepam 2 MG/ML VIAL IVPUSH (15:45)
[2021-07-31] MEDS: ondansetron HCL 4 MG/2 ML VIAL IVPUSH (15:45)
[2021-07-31] MEDS: 0.9 % Sodium Chloride 1,000 ML 999 ML IV (15:45)
[2021-07-31 15:49] LABS: Amphetamine Screen Urine Not Detected (Not Detect); Barbiturates, Urine Not Detected (Not Detect); Benzodiazepines Screen Urine POSITIVE (Not Detect); Cannabinoid Screen Urine POSITIVE (Not Detect); Cocaine Screen Urine Not Detected (Not Detect); Fentanyl, urine Not Detected (Not Detect); Opiate Screen Urine Not Detected (Not Detect); Phencyclidine Screen Urine Not Detected (Not Detect)
[2021-07-31] MEDS: Thiamine HCL 100 MG in 0.9 % Sodium Chloride 100 ML 202 MG IV (16:11)
[2021-07-31] MEDS: chlordiazePOXIDE HCl 25 MG CAPSULE 75 MG PO (16:53)
[2021-07-31] MEDS: Lactated Ringers 1,000 ML 999 ML IV (16:58)
[2021-07-31 18:15] VITALS: PULSE 87; RESP 18; O2SAT 98
--- NOTE | 2021-07-31 18:38 | MHC.RECOVSUP ---
? Reason for consult:Bed searcher o?? Current location ?[facility] o?? Identified substance use concern ?Alcohol ?? Withdrawal ?? Seeking ATS (detox) ?? Support ? Intervention: o?? ATS bed search started/completed/in process o?? Community resources provided o?? Harm reduction discussion ? Plan: o?? Bed search in progress o?? Patient to follow up with [facility] after discharge ? Additional information: Met with Pt. Pt came with alcohol withdrawals. Pt. states thart he wants to go to detox. This instructional coach was able to get a bed for him at [facility].Pt. will be discharger at 9:30pm so he can be at detox by 10pm.?
--- NOTE | 2021-07-31 18:39 | PC.NURSE ---
pt has history of alcoholism, he reports that he lost his and niece last year around this time, last night into this morning he started feeling depressed and started drinking again. He denies SI/HI. pt seen by Care Team and will be transported to detox later tonight. Care Team arranged transportation. pt resting quietly, no apparent distress noted.
[2021-07-31 19:14] VITALS: BP 140/93; PULSE 101; RESP 15; O2SAT 98
[2021-07-31] MEDS: LORazepam 2 MG/ML VIAL 1 MG IVPUSH (19:31)
[2021-07-31] MEDS: Magnesium Hydrox/Alum Hydrox 30 ML ORAL.SUSP PO (19:31)
[2021-07-31] MEDS: Lidocaine HCl Viscous 2 % 15 ML SOLUTION MUCOUS MEM (19:31)
[2021-07-31 19:37] VITALS: BP 148/90; PULSE 102; RESP 18; TEMP 37; O2SAT 95
--- NOTE | 2021-07-31 19:55 | PC.NURSE ---
Patient is being admitted to [facility] at 10:00pm. Patient did complain of acid reflux, MD notified and patient prescribed lidocaine and mag.
== END 2021-07-31 21:29 | disposition other institution (70) ==
PROVIDERS: Emergency Medicine; Emergency Provider Emergency Medicine
DX: F10.230 Alcohol dependence with withdrawal, uncomplicated (principal); T51.0X1A Toxic effect of ethanol, accidental (unintentional), initial encounter; F10.220 Alcohol dependence with intoxication, uncomplicated; Y90.1 Blood alcohol level of 20-39 mg/100 ml; Z20.822 Contact with and (suspected) exposure to COVID-19; K21.9 Gastro-esophageal reflux disease without esophagitis
CPT/HCPCS: 36410; 36415; 80048; 80076; 80307; 81003; 82077; 83690; 83735; 85025; 87635; 93005; 96361; 96365; 96375; 96376; 99285; 99291; J2060; J2405; J3411

== ENCOUNTER 2021-10-12 18:49 | Emergency (ER) | payer MEDICAID, SELFPAY ==
[2021-10-12 19:03] VITALS: BP 150/85; PULSE 103; RESP 20; TEMP 37.3; O2SAT 95; BMI 32.5
--- NOTE | 2021-10-12 20:02 | ED.GENADULT ---
HPI - General Adult General Chief complaint: ETOH/Substance Use Stated complaint: Depression Detox Time Seen by Provider: 10/12/21 20:02 Source: patient Mode of arrival: ambulatory Limitations: no limitations History of Present Illness HPI narrative: Patient is a 46 year old male presenting to the emergency department today requesting mental health evaluation and possible detox. Patient states that he was sober for awhile and had a few days worth of a relapse due to some recent stressors. Patient states that he is concerned that he is going to go through detox. Patient states that he would also like to talk to the mental health team because of all of his stressors and new depression. Patient denies any suicidal or homicidal ideation at this time. Patient denies any dizziness, lightheadedness, abdominal pain, nausea, vomiting, fever, chills, blurry vision, double vision, loss of vision, chest pain, difficulty breathing, shortness of breath, back pain, night sweats, pain with urination, increased urinary frequency, increased urinary urgency, blood in his urine or stool, syncope or a near syncopal episode, recent trauma or falls, bowel incontinence, bladder incontinence, bowel retention, bladder retention, or any other complaints at this time. Related Data Previous Rx's Medication Instructions Recorded gabapentin 600 mg tablet 600 mg PO TID 30 Days #90 tab 09/11/20 hydroxyzine HCl 50 mg tablet 50 mg PO TID PRN 30 Days #90 tab 09/11/20 lactulose 20 gram/30 mL oral 20 g (30 mL) PO DAILY PRN #1200 ml 09/11/20 solution quetiapine 100 mg tablet (Seroquel) 100 mg PO BEDTIME #30 tab 09/11/20 quetiapine 50 mg tablet (Seroquel) 50 mg PO DAILY PRN #30 tab 09/11/20 oxycodone 5 mg tablet 5 mg PO Q8H PRN #10 tab 10/05/20 Allergies Allergy/AdvReac Type Severity Reaction Status Date / Time No Known Allergies Allergy Verified 07/15/21 12:35 Review of Systems Constitutional: Constitutional: Reports no additional constitutional complaints, Denies chills, Denies fever(s) and Denies night sweats Eyes: Eyes: Reports no additional eye complaints, Denies blurry vision, Denies change in vision, Denies diplopia, Denies eye discharge, Denies loss of vision and Denies eye pain ENT: Denies dizziness Cardiovascular: Cardiovascular: Reports no additional cardiovascular complaints, Denies chest pain, Denies lightheadedness, Denies Loss of Consciousness and Denies dyspnea Respiratory: Respiratory: Reports no additional respiratory complaints and Denies dyspnea Gastrointestinal: Gastrointestinal: Reports no additional gastrointestinal complaints, Denies abdominal pain, Denies melena, Denies hematochezia, Denies change in bowel habits and Denies change in stool character Genitourinary: Genitourinary: Reports no additional male genitourinary complaints, Denies hematuria, Denies oliguria, Denies difficulty urinating, Denies dysuria, Denies urinary frequency, Denies urinary hesitancy, Denies urinary incontinence and Denies urinary urgency Musculoskeletal: Musculoskeletal: Reports no additional musculoskeletal complaints, Denies numbness and Denies tingling Neurologic: Denies dizziness, Denies loss of vision, Denies numbness and Denies tingling Psychiatric: Psychiatric: Reports anxiety and Reports depression Endocrine: Endocrine: Reports no additional endocrine complaints Hematologic/Lymphatic: Hematologic/Lymphatic: Reports no additional hematologic/lymphatic complaints Allergic/Immunologic: Allergic/Immunologic: Reports no additional allergic/immunologic complaints [facility] Past Medical History Attestation statement: The following information was validated with the patient. Source: old records reviewed Medical History Anxiety Depression EtOH dependence Neuropathy Social History Social History Alcohol intake: current Alcohol intake frequency: 3 or more drinks per day Alcohol type: hard liquor Patient Tobacco Use Status: Never used Tobacco Substance Use Type: Marijuana Advance Directives: No Advance Directives Information Provided: Yes Physical Exam ED Vital Signs: Vital Signs - 24 hr 10/12/21 19:03 10/12/21 20:38 10/12/21 22:42 Temperature 99.1 F 98.5 F Pulse Rate 103 H 87 101 H Respiratory Rate 20 16 16 Blood Pressure 150/85 H 135/90 H 135/90 H Pulse Oximetry 95 94 96 BMI result Body Mass Index 32.5 Const General: cooperative, no acute distress, alert and awake Nutritional Appearance: well nourished Orientation/consciousness: patient oriented x3 Limitations: no limitations HENMT Head: Yes normal to inspection and Yes atraumatic Ears: hearing grossly normal bilaterally and external ears normal General nose exam: Normal external nose present, no nasal discharge noted and no epistaxis Face and sinus: Yes normal facial exam, No abrasion and No laceration Mouth: Normal oral and palatal mucosa present, no drooling and no muffled voice Eyes General: appearance normal, both eyes and all related structures Periorbital: periorbital findings normal Eyelids: Yes eyelids normal Conjunctivae: conjunctivae normal Pupils: Equal, round and reactive pupils present EOM: EOMs intact bilaterally Neck Neck: Yes normal visual inspection, Yes full ROM and Yes no lymphadenopathy Chest Chest palpation & inspection: normal inspection of the chest Resp Effort & Inspection: normal respiratory effort and able to speak in complete sentences Auscultation: clear to auscultation bilaterally Cardio Rate: regular rate Rhythm: regular rhythm GI Inspection: Yes normal to inspection Neuro General: patient oriented x3 and moves all extremities Cranial nerves: Yes Equal, round and reactive pupils present Cognition (Neuro): normal cognition Motor exam (neuro): 5/5 motor strength present throughout Sensory Exam: Normal double simultaneous stimulation for sensation Coordination: [id number] test normal Extrem General: Yes normal to inspection, Yes full ROM and Yes capillary refill normal Psych Appearance: grossly normal Mental Status: mental status grossly normal Affect: Anxious affect present Attitude: cooperative Thought process: Normal thought process present Thought content: Normal thought content present Insight: Good insight present (Psych) Medical Decision Making MDM Narrative Medical decision making narrative: Patient is a 46 year old male presenting to the emergency department today with alcohol detox and depression. Patient's physical exam was unremarkable. Patient's blood work was unremarkable. I explained my physical exam findings as well as all test results to the patient. I answered all questions asked by the patient. Patient received PO Ativan which he stated helped his symptoms significantly. Patient is under physician observation pending mental health evaluation. Differential Diagnosis Differential Diagnosis: alcohol detox, depression Medical Records Medical records reviewed: Yes I reviewed the patient's medical records. Lab Data Lab results reviewed: Yes I reviewed the patient's lab results. Result diagrams: 10/12/21 20:37 10/12/21 20:37 Labs: Lab Results 10/12/21 10/12/21 10/12/21 Range/Units 20:37 20:37 20:37 WBC 8.9 (4.8-10.8) X10*3/uL RBC 5.79 (4.60-5.80) X10*6/uL Hgb 16.0 (14.0-18.0) g/dl Hct 49.2 (42.0-52.0) % MCV 85.0 (80.0-98.0) fL MCH 27.6 (27.0-33.0) pg MCHC 32.5 (31.0-36.0) g/dl RDW 13.2 (11.0-16.0) % Plt Count 209 (160-400) X10*3/uL MPV 10.2 (9.4-12.4) fL Immature Gran % (Auto) 0.9 H (0.0-0.4) % Neut % (Auto) 69.1 (45-73) % Lymph % (Auto) 23.4 (20-40) % [place] % (Auto) 5.5 (2-11) % Eos % (Auto) 0.6 (0-4) % Baso % (Auto) 0.5 (0-2) % Lymph # (Auto) 2.1 (1.2-4.9) X10*3/uL [place] # (Auto) 0.5 (0.1-1.2) X10*3/uL Eos # (Auto) 0.1 (0.0-0.4) X10*3/uL Baso # (Auto) 0.0 (0.0-0.2) X10*3/uL Abs Immat Gran (auto) 0.08 H (0.00-0.03) X10*3/uL Absolute Neuts (auto) 6.1 (2.0-8.3) x10*3/uL Absolute Nucleated RBC 0.000 (0.0-0.012) X10*3/uL Nucleated RBC % (auto) 0.0 (0.0-0.2) /100WBC Sodium 141 (135-145) mmol/L Potassium 4.0 (3.3-5.1) mmol/L Chloride 105 (96-108) mmol/L Carbon Dioxide 24 (22-29) mmol/L Anion Gap 16 (12-20) BUN 7 L (9-16) mg/dL Creatinine 0.86 (0.5-1.4) mg/dL Estim Creat Clear Calc 135.3 Estimated GFR > 60 Random Glucose 87 (60-115) mg/dL Calcium 9.7 (8.4-10.2) mg/dL Total Bilirubin 0.5 (0.0-1.0) mg/dL AST 22 (5-37) U/L ALT 29 (0-40) U/L Alkaline Phosphatase 95 (39-117) U/L Total Protein 7.7 (6.5-8.0) g/dL Albumin 4.6 (3.5-5.0) g/dL Urine Color Urine Appearance Urine pH (5.0-8.0) Ur Specific [place] (1.005-1.025) Urine Protein (NEG-TRACE) MG/DL Urine Glucose (UA) (NEG) MG/DL Urine Ketones (NEG) MG/DL Urine Blood (NEG) Urine Nitrite (NEG) Ur Leukocyte Esterase (NEG) Urine Opiates Screen (Not Detect) Urine Fentanyl Screen (Not Detect) Ur Barbiturates Screen (Not Detect) Ur Phencyclidine Scrn (Not Detect) Ur Amphetamines Screen (Not Detect) U Benzodiazepines Scrn (Not Detect) Urine Cocaine Screen (Not Detect) U Marijuana (THC) Screen (Not Detect) Ethyl Alcohol 60 mg/dL 10/12/21 10/12/21 Range/Units 20:37 20:37 WBC (4.8-10.8) X10*3/uL RBC (4.60-5.80) X10*6/uL Hgb (14.0-18.0) g/dl Hct (42.0-52.0) % MCV (80.0-98.0) fL MCH (27.0-33.0) pg MCHC (31.0-36.0) g/dl RDW (11.0-16.0) % Plt Count (160-400) X10*3/uL MPV (9.4-12.4) fL Immature Gran % (Auto) (0.0-0.4) % Neut % (Auto) (45-73) % Lymph % (Auto) (20-40) % [place] % (Auto) (2-11) % Eos % (Auto) (0-4) % Baso % (Auto) (0-2) % Lymph # (Auto) (1.2-4.9) X10*3/uL [place] # (Auto) (0.1-1.2) X10*3/uL Eos # (Auto) (0.0-0.4) X10*3/uL Baso # (Auto) (0.0-0.2) X10*3/uL Abs Immat Gran (auto) (0.00-0.03) X10*3/uL Absolute Neuts (auto) (2.0-8.3) x10*3/uL Absolute Nucleated RBC (0.0-0.012) X10*3/uL Nucleated RBC % (auto) (0.0-0.2) /100WBC Sodium (135-145) mmol/L Potassium (3.3-5.1) mmol/L Chloride (96-108) mmol/L Carbon Dioxide (22-29) mmol/L Anion Gap (12-20) BUN (9-16) mg/dL Creatinine (0.5-1.4) mg/dL Estim Creat Clear Calc Estimated GFR Random Glucose (60-115) mg/dL Calcium (8.4-10.2) mg/dL Total Bilirubin (0.0-1.0) mg/dL AST (5-37) U/L ALT (0-40) U/L Alkaline Phosphatase (39-117) U/L Total Protein (6.5-8.0) g/dL Albumin (3.5-5.0) g/dL Urine Color YELLOW Urine Appearance CLEAR Urine pH 6.0 (5.0-8.0) Ur Specific [place] 1.010 (1.005-1.025) Urine Protein NEG (NEG-TRACE) MG/DL Urine Glucose (UA) NEG (NEG) MG/DL Urine Ketones NEG (NEG) MG/DL Urine Blood NEG (NEG) Urine Nitrite NEG (NEG) Ur Leukocyte Esterase NEG (NEG) Urine Opiates Screen Not Detected (Not Detect) Urine Fentanyl Screen Not Detected (Not Detect) Ur Barbiturates Screen Not Detected (Not Detect) Ur Phencyclidine Scrn Not Detected (Not Detect) Ur Amphetamines Screen Not Detected (Not Detect) U Benzodiazepines Scrn Not Detected (Not Detect) Urine Cocaine Screen Not Detected (Not Detect) U Marijuana (THC) Screen POSITIVE H (Not Detect) Ethyl Alcohol mg/dL Discharge Plan Discharge Clinical Impression: Alcoholic intoxication, Depression Patient Disposition: Still a Patient Prescriptions: No Action gabapentin 600 mg tablet 600 mg PO TID 30 Days Qty: 90 1RF quetiapine [Seroquel] 100 mg tablet 100 mg PO BEDTIME Qty: 30 1RF quetiapine [Seroquel] 50 mg tablet 50 mg PO DAILY PRN (Reason: anxiety) Qty: 30 1RF hydroxyzine HCl 50 mg tablet 50 mg PO TID PRN (Reason: anxiety) 30 Days Qty: 90 1RF lactulose 20 gram/30 mL solution 20 g PO DAILY PRN (Reason: constipation) Qty: 1200 0RF oxycodone 5 mg tablet 5 mg PO Q8H PRN (Reason: pain) Qty: 10 0RF Referrals: Physician,Unknown J [Primary Care Provider] - 2 days (Follow up with your PCP. ) Print Language: Divehi
[2021-10-12 20:38] VITALS: BP 135/90; PULSE 87; RESP 16; TEMP 36.9; O2SAT 94
[2021-10-12 20:45] LABS: MANUAL DIFF FLAG NO
[2021-10-12 20:48] LABS: Appearance Urine CLEAR; Color Urine YELLOW; Glucose Urine UA NEG (NEG); Leukocyte Esterase Urine NEG (NEG); Nitrite Urine NEG (NEG); Urine Blood NEG (NEG); Urine Ketones NEG (NEG); Urine Protein NEG (NEG-TRACE)
[2021-10-12 20:50] LABS: Basophils Percent Auto 0.5 % (0-2); Eosinophils Absolute Auto 0.1 X10*3/uL (0.0-0.4); Eosinophils Percent Auto 0.6 % (0-4); Hematocrit 49.2 % (42.0-52.0); Imm Gran Abs Auto 0.08 X10*3/uL (0.00-0.03); Imm Gran Pct Auto 0.9 % (0.0-0.4); Lymphocytes Absolute Auto 2.1 X10*3/uL (1.2-4.9); Lymphocytes Percent Auto 23.4 % (20-40); Mean Corpuscular HGB Conc 32.5 g/dl (31.0-36.0); Mean Corpuscular Hemoglobin 27.6 pg (27.0-33.0); Mean Platelet Volume 10.2 fL (9.4-12.4); Monocytes Absolute Auto 0.5 X10*3/uL (0.1-1.2); Monocytes Percent Auto 5.5 % (2-11); Neutrophils Absolute Auto 6.1 x10*3/uL (2.0-8.3); Neutrophils Percent Auto 69.1 % (45-73); Platelet Count 209 X10*3/uL (160-400); Red Blood Count 5.79 X10*6/uL (4.60-5.80); Red Cell Distribution Width 13.2 % (11.0-16.0); White Blood Count 8.9 X10*3/uL (4.8-10.8)
[2021-10-12 20:59] LABS: Ethanol 60 mg/dL
[2021-10-12 21:01] LABS: Amphetamine Screen Urine Not Detected (Not Detect); Barbiturates, Urine Not Detected (Not Detect); Benzodiazepines Screen Urine Not Detected (Not Detect); Cannabinoid Screen Urine POSITIVE (Not Detect); Cocaine Screen Urine Not Detected (Not Detect); Fentanyl, urine Not Detected (Not Detect); Opiate Screen Urine Not Detected (Not Detect); Phencyclidine Screen Urine Not Detected (Not Detect)
[2021-10-12 21:03] LABS: Alanine Aminotransferase 29 U/L (0-40); Albumin Level 4.6 g/dL (3.5-5.0); Alkaline Phosphatase 95 U/L (39-117); Anion Gap 16 (12-20); Aspartate Amino Transferase 22 U/L (5-37); Bilirubin Total 0.5 mg/dL (0.0-1.0); Blood Urea Nitrogen 7 mg/dL (9-16); Calcium 9.7 mg/dL (8.4-10.2); Carbon Dioxide 24 mmol/L (22-29); Chloride 105 mmol/L (96-108); Creatinine Clr Calc Pharmacy 135.3; Estimated Glomerular Filt Rate > 60; Glucose Random 87 mg/dL (60-115); Sodium 141 mmol/L (135-145); Total Protein 7.7 g/dL (6.5-8.0)
[2021-10-12 22:42] VITALS: BP 135/90; PULSE 101; RESP 16; O2SAT 96
[2021-10-13] VITALS: BP 137/98; PULSE 100; RESP 15; O2SAT 95
[2021-10-13] MEDS: LORazepam 1 MG TABLET 2 MG PO ×2 (00:20→08:06)
[2021-10-13 00:36] VITALS: BP 134/82; PULSE 103; RESP 18; O2SAT 94
--- NOTE | 2021-10-13 00:50 | MHC.CARE ---
Met with pt who is seeking detox/dual diagnosis at this time. Pt states that he has recently became an alcoholic within the last few years and prior to that alcohol had never been problematic for him. Pt states that he has been increasingly depressed and drinking a sleeve of hard liquor. He states that he is off his psychiatric medications for depression and has been self medicating because of life stressors that he has not been able to cope with. He states that he has family support but both his parents live far. He states that his father lives in [place] and is currently in the hospital and shares that his mother had addiction issues in the past. Pt states that his nephew and fiance from addiction about a year and a half ago. Pt is motivated for tx. He wants to go farther out for treatment and would rather not stay in this area. He states that he has supportive friends that he can stay with but they don't allow his drinking. Pt advocates for [facility] and we discussed other facilities farther out. He is receptive and is agreeable to stay the night. Pt is concerned about insurance barriers. Pt denies SI, HI, AH/VH.
[2021-10-13 03:34] VITALS: PULSE 99; RESP 16; O2SAT 94
[2021-10-13 06:15] VITALS: BP 117/76; PULSE 92; RESP 14; O2SAT 96
[2021-10-13] MEDS: Ondansetron ODT 4 MG TAB.RAPDIS TRANSLINGU (08:06)
--- NOTE | 2021-10-13 08:09 | PC.NURSE ---
pt requesting ativan and anti-nausea medication. He has mild tremors. awaiting care team for assist for detox placement
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
[2021-10-13] MEDS: LORazepam 1 MG TABLET PO (10:13)
--- NOTE | 2021-10-13 10:22 | PC.NURSE ---
plan for discharge and transfer to detox
== END 2021-10-13 11:28 | disposition home or self-care (01) ==
PROVIDERS: Physician Assistant Medical; Emergency Provider Emergency Medicine
DX: F32.A Depression, unspecified (principal); F10.220 Alcohol dependence with intoxication, uncomplicated; Y90.3 Blood alcohol level of 60-79 mg/100 ml; F41.9 Anxiety disorder, unspecified; F12.90 Cannabis use, unspecified, uncomplicated; Z79.899 Other long term (current) drug therapy
CPT/HCPCS: 36415; 80053; 80307; 81003; 82077; 85025; 99285